=== PATIENT | female | born 1945 | race Caucasian/White ===

== ENCOUNTER 2022-10-04 08:56 | Inpatient (IN) ==
--- NOTE | 2022-10-04 10:22 | Emergency Department Note ---
HPI General Chief complaint: Fall Stated complaint: Hip fracture Time Seen by Provider: 10/04/22 10:08 Source: EMS Mode of arrival: EMS History of Present Illness HPI Narrative: Narrative: This patient with a history of dementia who resides at [facility] presents by EMS with a complaint of unwitnessed fall. Patient was found by staff on the floor. She reported that she had lost her balance and fallen. Initial reports that the patient did not hit her head, but the patient is not able to recall at this time whether or not she hit her head. Fall was unwitnessed. Patient is not on any blood thinners. She is complaining of right hip pain and low back pain. Obvious shortening and rotation of the right leg per EMS. Related Data Home Medications Medication Instructions Recorded Confirmed fluoxetine 20 mg tablet 20 mg PO QAM 09/04/21 10/04/22 latanoprost 0.005 % eye drops 1 drp ophthalmic (eye) HS 10/02/21 10/04/22 amlodipine 2.5 mg tablet 2.5 mg PO QAM 12/05/21 10/04/22 atorvastatin 40 mg tablet (Lipitor) 40 mg PO QPM 12/05/21 10/04/22 memantine 10 mg tablet (Namenda) 10 mg PO BID 12/05/21 10/04/22 ibuprofen 200 mg capsule 600 mg PO Q8H PRN Pain 02/07/22 10/04/22 naproxen 500 mg tablet 500 mg PO Q12H PRN pain 02/07/22 10/04/22 nystatin 100,000 unit/gram topical 10,000 unit topical BID 02/07/22 10/04/22 powder (Nyamyc) acetaminophen 325 mg tablet 650 mg PO Q4H PRN Pain 09/06/22 10/04/22 (Tylenol) Previous Rx's Medication Instructions Recorded donepezil 5 mg tablet 5 mg PO QHS #90 tabs 05/29/22 levothyroxine 137 mcg tablet 137 mcg PO QDAY #90 tabs 05/30/22 quetiapine 25 mg tablet 25 mg PO HS #90 tabs 07/16/22 Allergies Allergy/AdvReac Type Severity Reaction Status Date / Time penicillin G Allergy Unknown Unknown Verified 10/04/22 09:01 Review of Systems ROS ROS Narrative: Narrative: PFSH Narrative Patient History Narrative: Narrative: Medical/Surgical/Family History All Active Problems (Updated 10/04/22 @ 14:50 by Kelly Raymundo PA-C) Closed fracture of right hip (Acute) Intertrochanteric fracture of right femur (Acute) Alzheimer disease (Chronic) Abdominal pain (Chronic) Diarrhea (Chronic) Osteoarthritis (Chronic) Memory loss (Chronic) Glaucoma (Chronic) Anxiety (Chronic) Overweight (Chronic) History of cataract (Chronic) Belly pain (Chronic) Cough (Chronic) Throat clearing (Chronic) Acquired hypothyroidism (Chronic) Globus sensation (Chronic) Leukocytosis (Chronic) WILBERT (obstructive sleep apnea) (Chronic) Essential hypertension (Chronic) Hyperthyroidism (Chronic) Tinnitus of both ears (Chronic) Fatigue (Chronic) Right anterior knee pain (Chronic) Dementia (Chronic) Depression (Chronic) Iron deficiency anemia (Chronic) Normocytic anemia (Chronic) Mild aortic valve stenosis (Chronic) Irritation of eye (Chronic) Prediabetes (Chronic) High cholesterol (Chronic) Atypical chest pain (Chronic) Elevated blood-pressure reading, without diagnosis of hypertension (Chronic) Sleep disorder breathing (Chronic) Left anterior knee pain (Chronic) Aortic valve stenosis (Chronic) Neck pain (Chronic) Loss of balance (Chronic) Traumatic injury of head (Chronic) SOB (shortness of breath) (Chronic) Newly recognized murmur (Chronic) Elevated fasting glucose (Chronic) Left shoulder pain (Chronic) Candidiasis of vulva and vagina (Chronic) Dysuria (Chronic) Hypothyroidism (Chronic) Borderline hypothyroidism (Chronic) Impaired fasting glucose (Chronic) Obstruction of both eustachian tubes (Chronic) Pressure sensation in left ear (Chronic) Skin rash (Chronic) Dyslipidemia (Chronic) Knee problem (Chronic) COVID-19 (Chronic) Bilateral lower extremity edema (Chronic) Medicare annual wellness visit, initial (Acute) CLL (chronic lymphocytic leukemia) (Chronic) Monoclonal gammopathy (Chronic) Pleural effusion (Acute) Medical History Abdominal pain Right upper-Sided Acquired hypothyroidism Alzheimer disease Anxiety Aortic valve stenosis Atypical chest pain Belly pain Right Bilateral lower extremity edema Borderline hypothyroidism Candidiasis of vulva and vagina Cholecystitis CLL (chronic lymphocytic leukemia) Cough Dementia Depression Diarrhea Dyslipidemia Dysuria Elevated blood-pressure reading, without diagnosis of hypertension Elevated fasting glucose Essential hypertension Fatigue Glaucoma Globus sensation High cholesterol History of cataract Hyperthyroidism Hypothyroidism Impaired fasting glucose Iron deficiency anemia Irritation of eye Right Knee problem Left anterior knee pain Left shoulder pain Leukocytosis Loss of balance Medicare annual wellness visit, initial Memory loss Mild aortic valve stenosis Monoclonal gammopathy Neck pain Newly recognized murmur Normocytic anemia Obstruction of both eustachian tubes WILBERT (obstructive sleep apnea) Notable history, remote CPAP use, none recently (02/2022) Osteoarthritis Overweight Pleural effusion Prediabetes Pressure sensation in left ear Right anterior knee pain Skin rash Sleep disorder breathing SOB (shortness of breath) Throat clearing Tinnitus of both ears Traumatic injury of head Surgical History History of cataract surgery History of laparoscopic cholecystectomy (10/02/21) Family History Family/Other Cancer Son , 2 sons Diabetes Daughter Non Hodgkin's lymphoma Sister Non Hodgkin's lymphoma 1/2 sister Father High blood pressure Social History Smoking Status: Former smoker Alcohol Intake Frequency: does not drink Substance Use: does not use Exam Narrative Narrative: Narrative: Vital signs noted General: mild distress. Skin: Warm. Dry. No rash. Normal color. Eyes: PERRL. EOMI. Mouth: Membranes moist. Normal inspection. Neck: Good ROM. No meningeal signs. Supple. Cardiovascular: Regular rate and rhythm. No murmur. Respiratory: No respiratory distress. Breath sounds equal. No wheezing/rales/rhonchi. Gastrointestinal: Abdomen soft. No tenderness. No distention. Normal bowel sounds. No rebound tenderness or guarding. Back: Focal tenderness palpation of the lumbar spine in the L3 area. No obvious deformity or step-off. No crepitus. Extremities: Exquisite tenderness palpation of the right hip. Obvious shortening and rotation of the right lower extremity. Dorsalis pedis pulses intact bilaterally. Neurological: No focal neurological deficits observed. CN 2-12 intact. Alert. Oriented to person which is her baseline. Patient does not have clear recollection of the event. Course Course Course Narrative: The following orders are placed and reviewed by myself: Patient medicated with Dilaudid for pain, Zofran for nausea CBC and CHEM panel reviewed Fall is unwitnessed, patient believes she just lost her balance but is not quite sure. Syncope is considered. EKG is obtained EKG reviewed by myself to show normal sinus rhythm rate 95. QRS complexes are n arrow and at regular interval. No ST elevation or depression. 1 view chest x-ray consistent with pulmonary congestion. CT the brain, cervical spine, lumbar spine and pelvis without contrast report by radiology to be concerning for a right intertrochanteric fracture of the right hip. CT the brain is concerning for possible hemorrhage, with recommendation for MRI. MRI of the brain without contrast is without acute changes. Patient discussed with on-call orthopedic surgeon Dr. Francois regarding hip fracture. Anticipation is the patient will go to surgery today. Patient also discussed with and accepted by hospitalist service. Vital Signs Vital signs: Vital Signs Temperature 97.8 F 10/04/22 08:57 Pulse Rate 89 10/04/22 08:57 Respiratory Rate 16 10/04/22 08:57 Blood Pressure 122/73 10/04/22 08:57 Pulse Oximetry (%) 95 10/04/22 08:57 Oxygen Delivery Method Room Air 10/04/22 08:57 Temperature 97.8 F 10/04/22 08:57 Pulse Rate 84 10/04/22 14:31 Respiratory Rate 33 H 10/04/22 10:31 Blood Pressure 128/73 10/04/22 14:31 Pulse Oximetry (%) 96 10/04/22 14:31 Oxygen Delivery Method Nasal Cannula 10/04/22 14:31 Oxygen Flow Rate (L/min) 2 10/04/22 14:31 [facility] MDM Narrative Medical decision making narrative: Narrative: Lab Data 10/04/22 10:29 10/04/22 09:15 Labs: Lab Results 10/04/22 10/04/22 10/04/22 Range/Units 09:15 09:15 10:29 WBC 20.5 H (4.5-11.0) K/mcL RBC 4.56 (3.59-5.38) M/mcL Hgb 12.4 (11.2-15.7) g/dL Hct 39.0 (34.1-44.9) % MCV 85.5 (80.0-100.0) fL MCH 27.2 (26.0-34.0) pg MCHC 31.8 (31.0-36.0) g/dL RDW 18.3 H (11.5-14.5) % Plt Count 345 (140-440) K/mcL MPV 11.0 (8.8-12.5) fL Immature Gran % (Auto) 0.8 H (0.0-0.5) % Neut % (Auto) 37.9 L (38.0-78.0) % Lymph % (Auto) 53.1 H (15.5-49.0) % Potter % (Auto) 7.5 (1.0-12.0) % Eos % (Auto) 0.4 (0.0-7.0) % Baso % (Auto) 0.3 (0.0-2.0) % Lymph # (Auto) 10.90 H (1.50-4.80) K/mcL Potter # (Auto) 1.54 H (0.10-0.90) K/mcL Eos # (Auto) 0.08 (0.00-0.70) K/mcL Baso # (Auto) 0.06 (0.00-0.30) K/mcL Immature Gran # 0.17 H (0.00-0.05) K/mcl Absolute Neutrophils 7.77 (1.80-8.00) K/mcL PT 14.1 (11.9-14.5) sec INR 1.1 (0.9-1.1) Sodium 138 (133-145) mmol/L Potassium 3.8 (3.3-5.1) mmol/L Chloride 104 (96-108) mmol/L Carbon Dioxide 22 (22-30) mmol/L Anion Gap 12.0 (8.0-16.0) BUN 10 (8-23) mg/dL Creatinine 1.2 H (0.6-1.1) mg/dL GFR Calculation 43 Glucose 109 H (70-105) mg/dL Calcium 8.5 L (8.6-10.4) mg/dL Total Bilirubin 0.4 (0.1-1.0) mg/dL AST 19 (<32) U/L ALT 7 (<40) U/L Alkaline Phosphatase 156 H (39-117) U/L Total Protein 6.9 (5.9-8.4) gm/dL Albumin 3.0 L (3.2-5.2) gm/dL Globulin 3.9 H (2.2-3.7) gm/dL Albumin/Globulin Ratio 0.8 L (1.0-2.3) Discharge Plan Patient/Caregiver Discharge Instructions Pt seen by CUST[employer]ER [employer] ASSOCIATE/PA only: Yes Clinical Impression: Closed fracture of right hip Patient Disposition: Xfer As Outpt/Obs ([facility]) Follow up with: Dale Francois MD [Physician] - Raj Good MD [Primary Care Provider] - Prescriptions: No Action levothyroxine 137 mcg tablet 137 mcg PO QDAY Qty: 90 3RF quetiapine 25 mg tablet 25 mg PO HS Qty: 90 1RF fluoxetine 20 mg tablet 20 mg PO QAM amlodipine 2.5 mg tablet 2.5 mg PO QAM atorvastatin [Lipitor] 40 mg tablet 40 mg PO QPM memantine [Namenda] 10 mg tablet 10 mg PO BID ibuprofen 200 mg capsule 600 mg PO Q8H PRN (Reason: Pain) nystatin [Nyamyc] 100,000 unit/gram powder 10,000 unit topical BID naproxen 500 mg tablet 500 mg PO Q12H PRN (Reason: pain) donepezil 5 mg tablet 5 mg PO QHS Qty: 90 2RF acetaminophen [Tylenol] 325 mg tablet 650 mg PO Q4H PRN (Reason: Pain) latanoprost 0.005 % drops 1 drp OPHTHALMIC (EYE) HS
[2022-10-04] MEDS ORDERED: ONDANSETRON 4 MG/2 ML VIAL ONE ×2 (10:33→15:25)
[2022-10-04] MEDS: HYDROmorphone 0.5 MG/0.5 ML SYRINGE IV PRN ×2 (10:38→14:09)
[2022-10-04] MEDS ORDERED: ONDANSETRON 4 MG/2 ML VIAL IV ONE (10:39)
--- NOTE | 2022-10-04 11:00 | Cat Scan Report ---
CLINICAL INFORMATION: Trauma COMPARISON: None. TECHNIQUE: 2.5 mm helical slices were obtained in the skull base to vertex. Following reconstruction, axial reformatted images were reviewed at bone and parenchymal windows. The exam was performed using radiation dose optimization techniques including, but not limited to, automated exposure control, adjustment of the mA and/or kV according to patient size and use of iterative reconstruction technique. FINDINGS: The ventricles, sulci, fissures, and cisterns are symmetrically enlarged compatible with mild age-related atrophy. No extra-axial fluid collections are identified. Mild patchy chronic ischemic changes, in the deep cerebral white matter, are expected for age. There is a 20 x 8 mm fusiform shaped hyperattenuating region in the soto radiata fibers in the deep white matter adjacent to the right lateral ventricle. This could represent a focus of hemorrhage.. Bone windows show no osseous abnormality. IMPRESSION: Mild atrophy and chronic ischemic changes in the deep cerebral white matter-expected for age. 20 x 8 mm fusiform high attenuation region in the deep right frontal white matter possible vague region of hemorrhage. Suggest brain MRI Interpreted and Authenticated by: Han Cao 10/04/22
[2022-10-04 11:13] LABS: Basophils # (Auto) 0.06 K/mcL (0.00-0.30); Basophils % (Auto) 0.3 % (0.0-2.0); Eosinophils # (Auto) 0.08 K/mcL (0.00-0.70); Eosinophils % (Auto) 0.4 % (0.0-7.0); Hemoglobin 12.4 g/dL (11.2-15.7); Lymphocytes % (Auto) 53.1 % (15.5-49.0); Mean Cell Volume 85.5 fL (80.0-100.0); Mean Corpuscular HGB Conc 31.8 g/dL (31.0-36.0); Monocytes # (Auto) 1.54 K/mcL (0.10-0.90); Monocytes % (Auto) 7.5 % (1.0-12.0); Neutrophils % (Auto) 37.9 % (38.0-78.0); Platelet Count 345 K/mcL (140-440); RBC 4.56 M/mcL (3.59-5.38); Red Cell Distribution Width 18.3 % (11.5-14.5); WBC 20.5 K/mcL (4.5-11.0)
[2022-10-04 11:33] LABS: INR 1.1 (0.9-1.1); Prothrombin Time 14.1 sec (11.9-14.5)
[2022-10-04 11:35] LABS: ALT/SGPT 7 U/L (<40); AST/SGOT 19 U/L (<32); Albumin/Globulin Ratio 0.8 (1.0-2.3); Alkaline Phosphatase 156 U/L (39-117); Bilirubin,Total 0.4 mg/dL (0.1-1.0); Blood Urea Nitrogen 10 mg/dL (8-23); Calcium 8.5 mg/dL (8.6-10.4); Carbon Dioxide 22 mmol/L (22-30); Chloride 104 mmol/L (96-108); Globulin 3.9 gm/dL (2.2-3.7); Glomerular Filtration Rate 43; Glucose 109 mg/dL (70-105)
--- NOTE | 2022-10-04 11:35 | XRay Report ---
CLINICAL INFORMATION: Shortness of breath COMPARISON: 09/17/2022 TECHNIQUE: Portable FINDINGS: The heart is mildly enlarged. Mediastinum is unremarkable. Pulmonary vessels are mildly distended with mild peribronchial vascular edema. Small recurrent left pleural effusion appreciated. No evidence of left pneumothorax. IMPRESSION: Moderate CHF. Small recurrent left pleural effusion Interpreted and Authenticated by: Han Cao 10/04/22
--- NOTE | 2022-10-04 11:41 | Cat Scan Report ---
CLINICAL INFORMATION: Right hip pain COMPARISON: None. TECHNIQUE: 0.625 mm helical slices were obtained from the mid L4 through the subtrochanteric regions. Following reconstruction, 2.5 mm sagittal, coronal and axial reformations were processed. The exam was reviewed in bone and soft tissue windows. The exam was performed using radiation dose optimization techniques including, but not limited to, automated exposure control, adjustment of mA and/or kV according to patient size and use of iterative reconstruction technique. FINDINGS: A moderately comminuted acute intertrochanteric fracture of the right hip is appreciated. There is moderate coxa vara angulation. The femoral diaphysis is displaced 5 mm posteriorly with respect to the femoral neck. Both SI and hip joints show mild degeneration. Soft tissues show urinary bladder is normal. Slightly retroflexed uterus is normal postmenopausal size 6 x 2.7 cm. The region of both ovaries are normal. Visualized small large bowel are unremarkable. There is no free air, free fluid or adenopathy. Inferior pericecal appendix is normal. Muscle and fascial planes are unremarkable. IMPRESSION: Moderately comminuted acute intertrochanteric fracture right hip with coxa vera angulation and mild displacement. Interpreted and Authenticated by: Han Cao 10/04/22
--- NOTE | 2022-10-04 11:54 | Cat Scan Report ---
CLINICAL INFORMATION: Trauma COMPARISON: None. TECHNIQUE: 0.625 mm helical slices were obtained from the mid T12 through mid S2 vertebral bodies. Following reconstruction, 2.5 mm coronal, sagittal, and axial reformations (angle to the disc spaces) were processed. Exam was reviewed at bone and soft tissue windows.The exam was performed using radiation dose optimization techniques including, but not limited to, automated exposure control, adjustment of the mA and/or kV according to patient size and use of iterative reconstruction technique. FINDINGS: The lumbar spine is normal in curvature and alignment. There are no fractures or other osseous abnormalities. The region of the conus medullaris and cauda equina roots are normal. Mild pancreatic atrophy noted. There are no other soft tissue abnormalities. The T11-T12, T12-L1 and L1-2 disc levels are normal. At L2-3 mild broad disc spur complex and facet arthropathy result in moderate central canal and bilateral lateral recess narrowing. There may be impingement of the descending L3 nerve roots. At L3-4, moderate broad disc protrusion facet arthropathy result in moderate central canal and mild bilateral lateral recess and IV foraminal narrowing. At L4-5, moderate broad disc protrusion, grade 1 spondylolisthesis, facet arthropathy and ligamentum flavum hypertrophy result in severe central canal, moderate bilateral lateral recess and mild bilateral IV foraminal narrowing. There is impingement of the descending L5 nerve roots in the lateral recesses. At L5-S1, moderate broad disc spur complex and facet arthropathy result in mild bilateral IV foraminal narrowing and mild central canal narrowing. IMPRESSION: 1. Fracture or posttraumatic change. 2. Multilevel degeneration-most severe at L4-5 featuring severe central canal and moderate bilateral lateral recess narrowing with impingement of the descending L5 nerve roots 3. Pancreatic atrophy Interpreted and Authenticated by: Han Cao 10/04/22
--- NOTE | 2022-10-04 11:59 | Cat Scan Report ---
CLINICAL INFORMATION: Trauma COMPARISON: None. TECHNIQUE: 0.625 mm helical slices were obtained from the skull base through the superior T2 end plate. Following reconstruction, 2.5 mm sagittal, coronal and axial reformations , with and without disc space angling, were processed. The exam was reviewed at bone and soft tissue windows. The exam was performed using radiation dose optimization techniques including, but not limited to, automated exposure control, adjustment of the mA and/or kV according to patient size and use of iterative reconstruction technique. FINDINGS: Sagittal and coronal reformatted images show the cervical spine is anatomically aligned. There is no fracture. Fusion of the C3-4 facet appreciated-no other osseous abnormality. The cervical cord is normal in contour and caliber without focal lesion. The soft tissues are normal. At C2-3, a small right-sided disc spur complex mildly impinges the anterior fixation thecal sac. At C3-4, mild broad far left calcified disc spur complex and facet hypertrophy results in mild left lateral recess and mild central canal narrowing At C4-5, mild broad disc protrusion minimally impinges the thecal sac At C5-6, mild broad disc protrusion with right-sided asymmetry facet arthropathy result in mild central canal and mild right IV foraminal narrowing At C6-7, mild broad disc protrusion results in mild thecal sac impingement C7-T1 mild broad disc protrusion appreciated. IMPRESSION: 1. No fracture or posttraumatic change 2. Mild multilevel degeneration 3. Severe bilateral TMJ degeneration Interpreted and Authenticated by: Han Cao 10/04/22
--- NOTE | 2022-10-04 12:15 | Magnetic Resonance Report ---
CLINICAL INFORMATION: History of dementia and trauma. Possible hemorrhage in the right frontal white matter on CT COMPARISON: Head CT 09/26/2022 TECHNIQUE:Sagittal T1 FLAIR, axial T1 FLAIR, T2 FLAIR propeller, T2 propeller, gradient, diffusion, ADC and coronal T2 weighted images were acquired. FINDINGS: The ventricles, sulci, fissures and cisterns are symmetrically enlarged relative mild age-related atrophy extra-axial fluid collections or mass are appreciated. Chronic senescent ischemic changes seen in the deep cerebral white matter expected for age. There is no evidence of hemorrhage in the deep right frontal white matter which was suspected on CT. This should be considered artifact. The signal void in intracerebral arteries, extra-axial cranial nerves, pituitary, orbits and paranasal sinuses are all normal. IMPRESSION: Mild atrophy and chronic senescent ischemic changes in the cerebral white matter expected for age. No evidence of hemorrhage in the deep right frontal white matter. This should be considered a CT artifact Interpreted and Authenticated by: Han Cao 10/04/22
--- NOTE | 2022-10-04 14:22 | XRay Report ---
CLINICAL INFORMATION: Trauma COMPARISON: None. FINDINGS: A moderately comminuted acute intertrochanteric fracture of the right hip is appreciated. There is moderate coxa vara angulation and mild displacement. Both SI and hip joints show mild degeneration. Soft tissue swelling over the fracture site appreciated IMPRESSION: Moderately comminuted acute intertrochanteric fracture right hip with coxa vara angulation and mild displacement Interpreted and Authenticated by: Han Cao 10/04/22
--- NOTE | 2022-10-04 14:37 | Internal Med History&Physical ---
HPI History of Present Illness Patient information: Note initiated : 10/04/22 at 2:28 pm Service Date, if different from initiated Date: [] Patient: Siria Carreno a 76 y/o F admitted on for Open Reduction & Internal Fixation of Right Hip . Chief Complaint: [fall] Chief complaint: fall History of present illness: Ms. Carreno is a 76 year old F past medical history of dementia, hypertensions, dyslipidemia, depressions, hypothyroidism, memory care facility resident, presenting with accidental fall. The fall was and weakness. It was reported that she was found on the ground in the cafeteria of the [facility] care facility. Patient recalls that she fell but she does not remember any details about the accident at all. Right now she denies of any of the hip pain. She is comfortable at the moment. Imaging done in our ED showing right intertrochanteric hip fractures. Orthopedic surgeon Dr. Francois notified it and would like to take the patient to the OR later today. Constitutional Constitutional: Absent chills, excessive sweating, fatigue, fever(s) or weakness EENT Eyes: Absent blurry vision, change in vision, loss of vision or other visual disturbances Ears: Absent decreased hearing or tinnitus Nose, mouth and throat: Absent abnormal hearing, dry mouth, headache(s), nasal congestion or sore throat Cardiovascular Cardiovascular: Absent chest pain, chest pain at rest, edema, irregular heart rhythm or palpatations Respiratory Respiratory: Absent cough, dyspnea or wheezing Gastrointestinal Gastrointestinal: Absent abdominal pain, constipation, diarrhea, nausea or vomiting Musculoskeletal Musculoskeletal: Absent back pain, deformity, limited range of motion, muscle cramps, muscle weakness or numbness Integumentary Integumentary: Absent lesions, rash or wounds Neurological Neurological: Absent focal weakness, headache(s) or numbness Psychiatric Psychiatric: Absent anxiety, depression or hallucinations PFSH PFSH All Active Problems (Updated 10/04/22 @ 14:37 by Lanre Finch MD) Intertrochanteric fracture of right femur (Acute) Alzheimer disease (Chronic) Abdominal pain (Chronic) Diarrhea (Chronic) Osteoarthritis (Chronic) Memory loss (Chronic) Glaucoma (Chronic) Anxiety (Chronic) Overweight (Chronic) History of cataract (Chronic) Belly pain (Chronic) Cough (Chronic) Throat clearing (Chronic) Acquired hypothyroidism (Chronic) Globus sensation (Chronic) Leukocytosis (Chronic) WILBERT (obstructive sleep apnea) (Chronic) Essential hypertension (Chronic) Hyperthyroidism (Chronic) Tinnitus of both ears (Chronic) Fatigue (Chronic) Right anterior knee pain (Chronic) Dementia (Chronic) Depression (Chronic) Iron deficiency anemia (Chronic) Normocytic anemia (Chronic) Mild aortic valve stenosis (Chronic) Irritation of eye (Chronic) Prediabetes (Chronic) High cholesterol (Chronic) Atypical chest pain (Chronic) Elevated blood-pressure reading, without diagnosis of hypertension (Chronic) Sleep disorder breathing (Chronic) Left anterior knee pain (Chronic) Aortic valve stenosis (Chronic) Neck pain (Chronic) Loss of balance (Chronic) Traumatic injury of head (Chronic) SOB (shortness of breath) (Chronic) Newly recognized murmur (Chronic) Elevated fasting glucose (Chronic) Left shoulder pain (Chronic) Candidiasis of vulva and vagina (Chronic) Dysuria (Chronic) Hypothyroidism (Chronic) Borderline hypothyroidism (Chronic) Impaired fasting glucose (Chronic) Obstruction of both eustachian tubes (Chronic) Pressure sensation in left ear (Chronic) Skin rash (Chronic) Dyslipidemia (Chronic) Knee problem (Chronic) COVID-19 (Chronic) Bilateral lower extremity edema (Chronic) Medicare annual wellness visit, initial (Acute) CLL (chronic lymphocytic leukemia) (Chronic) Monoclonal gammopathy (Chronic) Pleural effusion (Acute) Medical History Abdominal pain Right upper-Sided Acquired hypothyroidism Alzheimer disease Anxiety Aortic valve stenosis Atypical chest pain Belly pain Right Bilateral lower extremity edema Borderline hypothyroidism Candidiasis of vulva and vagina Cholecystitis CLL (chronic lymphocytic leukemia) Cough Dementia Depression Diarrhea Dyslipidemia Dysuria Elevated blood-pressure reading, without diagnosis of hypertension Elevated fasting glucose Essential hypertension Fatigue Glaucoma Globus sensation High cholesterol History of cataract Hyperthyroidism Hypothyroidism Impaired fasting glucose Iron deficiency anemia Irritation of eye Right Knee problem Left anterior knee pain Left shoulder pain Leukocytosis Loss of balance Medicare annual wellness visit, initial Memory loss Mild aortic valve stenosis Monoclonal gammopathy Neck pain Newly recognized murmur Normocytic anemia Obstruction of both eustachian tubes WILBERT (obstructive sleep apnea) Notable history, remote CPAP use, none recently (02/2022) Osteoarthritis Overweight Pleural effusion Prediabetes Pressure sensation in left ear Right anterior knee pain Skin rash Sleep disorder breathing SOB (shortness of breath) Throat clearing Tinnitus of both ears Traumatic injury of head Surgical History History of cataract surgery History of laparoscopic cholecystectomy (10/02/21) Family History Family/Other Cancer Son , 2 sons Diabetes Daughter Non Hodgkin's lymphoma Sister Non Hodgkin's lymphoma 1/2 sister Father High blood pressure Social History marital status: single occupational status: unemployed smoking status: Former smoker smoking status stop date: 06/09/05 alcohol intake frequency: does not drink substance use type: does not use MEDS/ALLERGIES Home Medications and Allergies Home Medications Medication Instructions Recorded Confirmed Type fluoxetine 20 mg tablet 20 mg PO QAM 09/04/21 10/04/22 History latanoprost 0.005 % eye drops 1 drp ophthalmic (eye) HS 10/02/21 10/04/22 History amlodipine 2.5 mg tablet 2.5 mg PO QAM 12/05/21 10/04/22 History atorvastatin 40 mg tablet (Lipitor) 40 mg PO QPM 12/05/21 10/04/22 History memantine 10 mg tablet (Namenda) 10 mg PO BID 12/05/21 10/04/22 History ibuprofen 200 mg capsule 600 mg PO Q8H PRN Pain 02/07/22 10/04/22 History naproxen 500 mg tablet 500 mg PO Q12H PRN pain 02/07/22 10/04/22 History nystatin 100,000 unit/gram topical 10,000 unit topical BID 02/07/22 10/04/22 History powder (Nyamyc) donepezil 5 mg tablet 5 mg PO QHS #90 tabs 05/29/22 10/04/22 Rx levothyroxine 137 mcg tablet 137 mcg PO QDAY #90 tabs 05/30/22 10/04/22 Rx quetiapine 25 mg tablet 25 mg PO HS #90 tabs 07/16/22 10/04/22 Rx acetaminophen 325 mg tablet 650 mg PO Q4H PRN Pain 09/06/22 10/04/22 History (Tylenol) Allergies Allergy/AdvReac Type Severity Reaction Status Date / Time penicillin G Allergy Unknown Unknown Verified 10/04/22 09:01 EXAM Constitutional Vitals: Temp Pulse Resp BP Pulse Ox O2 Del Method 36.6 C 94 H 33 H 119/66 87 L Room Air 10/04/22 08:57 10/04/22 13:00 10/04/22 10:31 10/04/22 13:00 10/04/22 13:00 10/04/22 08:57 General appearance: cooperative and no acute distress Head Head exam: Present atraumatic and normocephalic Eye Eye exam: Present EOMI and PERRL ENT ENT exam: Present mucous membranes moist, normal exam and normal external ear exam Additional comments: Nasal cannula in place Neck Neck exam: Present normal inspection; Absent lymphadenopathy, tenderness or th yromegaly Respiratory Respiratory exam: Absent accessory muscle use, respiratory distress or wheezes Cardiovascular Cardiovascular exam: Present normal rate and rhythm; Absent JVD GI/Abdominal GI/Abdominal exam: Present normal bowel sounds and soft; Absent organomegaly or tenderness Extremities Exam Extremities exam: Present normal capillary refill, normal inspection and tenderness; Absent full ROM Additional comments: Right hip active and passive ROMs limited by pain Neurological Exam Neurological exam: Present alert and CN II-XII intact; Absent motor sensory deficit or oriented X3 Additional comments: Oriented X2 to person and place only Psychiatric Psychiatric exam: Present normal affect and normal mood; Absent anxious or depressed Skin Skin exam: Present dry and intact DATA Data Completed and Pending Labs: Labs from last 24 hours 10/04/22 10/04/22 10/04/22 10:29 09:15 09:15 WBC 20.5 H RBC 4.56 Hgb 12.4 Hct 39.0 MCV 85.5 MCH 27.2 MCHC 31.8 RDW 18.3 H Plt Count 345 MPV 11.0 Immature Gran % (Auto) 0.8 H Neut % (Auto) 37.9 L Lymph % (Auto) 53.1 H [place] % (Auto) 7.5 Eos % (Auto) 0.4 Baso % (Auto) 0.3 Lymph # (Auto) 10.90 H [place] # (Auto) 1.54 H Eos # (Auto) 0.08 Baso # (Auto) 0.06 Immature Gran # 0.17 H Absolute Neutrophils 7.77 PT 14.1 INR 1.1 Sodium 138 Potassium 3.8 Chloride 104 Carbon Dioxide 22 Anion Gap 12.0 BUN 10 Creatinine 1.2 H GFR Calculation 43 Glucose 109 H Calcium 8.5 L Total Bilirubin 0.4 AST 19 ALT 7 Alkaline Phosphatase 156 H Total Protein 6.9 Albumin 3.0 L Globulin 3.9 H Albumin/Globulin Ratio 0.8 L A/P Assessment and plan (1) Intertrochanteric fracture of right femur: Status: Acute (2) Alzheimer disease: Status: Chronic (3) Hyperthyroidism: Status: Chronic (4) Essential hypertension: Status: Chronic (5) Dementia: Status: Chronic (6) Depression: Status: Chronic (7) Dyslipidemia: Status: Chronic Narrative A/P Narrative: Assessment and Plans: 1. Right intertrochanteric femur fracture: Inpatient MedSurg Orthopedic surgeon Dr. Francois notified it who plan to take the patient to the OR today Bedrest N.p.o. with normal saline at 100 cc/h in preparation of the surgery Tylenol Naproxen Oxycodone Morphine Physical therapy evaluation and treatment Occupational Therapy evaluation and treatment 2. History of Alzheimer dementia: Donepezil Memantine 3. Depression Quetiapine 4. Essential hypertension: Norvasc Hold Lasix for now while giving IV fluid 5. Dyslipidemia: Continue Lipitor 6. Hypothyroidism: Continue thyroid replacement therapy GI prophylaxis: Not currently indicated DVT prophylaxis: SCDs CODE STATUS: Full code Prognosis: Guarded Disposition: Inpatient MedSurg Time Spent With Patient Time: Total time spent is greater than 50% in coordination of care (as documented) at patient's floor/unit and/or counseling patient: Initial: Total time with patient: 55 - 74 minutes
[2022-10-04] MEDS ORDERED: ceFAZolin 2 GM in DEXTROSE 5% IN WATER 50 ML IV SCH ×2 (15:00→16:45)
[2022-10-04] MEDS ORDERED: ACETAMINOPHEN 325 MG TABLET PO PRN ×2 (15:22→17:35)
[2022-10-04] MEDS ORDERED: NAPROXEN 250 MG TABLET PO PRN (15:23)
[2022-10-04] MEDS ORDERED: LIDOCAINE HCL/PF 100 MG/5 ML SYRINGE IV ONE (15:25)
[2022-10-04] MEDS ORDERED: MIDAZOLAM 2 MG/2 ML VIAL ONE (15:25)
[2022-10-04] MEDS ORDERED: HYDROmorphone 1 MG/ML SYRINGE ONE (15:25)
[2022-10-04] MEDS ORDERED: PROPOFOL 200 MG/20 ML VIAL IV ONE (15:25)
[2022-10-04] MEDS ORDERED: DEXAMETHASONE 10 MG/ML VIAL ONE (15:25)
[2022-10-04] MEDS ORDERED: TRANEXAMIC ACID 1,000 MG/10 ML VIAL ONE (15:25)
[2022-10-04] MEDS ORDERED: KETAMINE 50 MG/ML Syringe (ANEST) IV ONE (15:25)
[2022-10-04] MEDS ORDERED: MAGNESIUM SULFATE 2 GM/50 ML BAG IV ONE (15:25)
[2022-10-04] MEDS ORDERED: BENZOCAINE/MENTHOL 1 LOZENGE PO PRN (16:17)
[2022-10-04] MEDS ORDERED: BISACODYL 10 MG SUPP.RECT PR PRN (16:17)
[2022-10-04] MEDS ORDERED: FLEETS ADULT ENEMA PR PRN (16:17)
[2022-10-04] MEDS ORDERED: MAGNESIUM HYDROXIDE 30 ML ORAL.SUSP PO PRN (16:17)
[2022-10-04] MEDS ORDERED: POLYETHYLENE GLYCOL 3350 17 GM PACKET PO PRN (16:17)
--- NOTE | 2022-10-04 16:17 | Brief Operative Note ---
Brief Operative Note Date of procedure: 10/04/22 Pre-op diagnosis: Right closed intertrochanteric hip fracture Post-op diagnosis: same Procedure: Open treatment internal fixation of right intertrochanteric fracture with intramedullary fixation Grafts/Implants: Yes (Page short gamma nail, 125, 85 mm lag screw) Anesthesia: spinal Findings: severe osteoporosis, comminuted fracture Complications: none Surgeon: Dale Francois Alarm Technician: Saulo Núñez Estimated blood loss (cc): 100 Specimens Removed/Pathology: none sent Condition: stable Disposition: PACU
[2022-10-04] MEDS ORDERED: morphine 4 MG/ML VIAL IV PRN ×2 (16:35→17:35)
[2022-10-04] MEDS ORDERED: fentaNYL 100 MCG/2 ML VIAL IV PRN (16:36)
[2022-10-04] MEDS ORDERED: MEPERIDINE 25 MG/ML VIAL IV PRN (16:36)
[2022-10-04] MEDS ORDERED: METHOCARBAMOL 1,000 MG/10 ML VIAL IV PRN (16:36)
[2022-10-04] MEDS ORDERED: HYDROmorphone 0.5 MG/0.5 ML SYRINGE IV PRN (16:36)
[2022-10-04] MEDS ORDERED: ONDANSETRON 4 MG/2 ML VIAL IV PRN ×2 (16:36→17:35)
[2022-10-04] MEDS ORDERED: IPRATROPIUM/ALBUTEROL 3 ML AMPUL.NEB NEB PRN ×2 (16:36→17:35)
[2022-10-04] MEDS ORDERED: PROMETHAZINE 25 MG/ML VIAL IV PRN (16:36)
[2022-10-04] MEDS ORDERED: METHOCARBAMOL 1,000 MG/10 ML VIAL ONE (17:05)
[2022-10-04] MEDS ORDERED: fentaNYL 100 MCG/2 ML VIAL IV ONE (17:06)
[2022-10-04] MEDS ORDERED: oxyCODONE IR 5 MG TABLET PO PRN (17:35)
[2022-10-04] MEDS ORDERED: traZODone HCL 50 MG TABLET PO PRN (17:35)
--- NOTE | 2022-10-04 17:50 | History and Physical Report ---
DATE OF ADMISSION: 10/04/2022 CHIEF COMPLAINT: Right hip pain. HISTORY OF PRESENT ILLNESS: This is a 76-year-old female with a history of dementia that lives at memory care facility that was found on the ground in the cafeteria. She reported significant hip pain and was unable to bare weight. She was brought to the ED, x-rays taken did show a right intertrochanteric hip fracture. The patient also has a history of hypertension, dyslipidemia, depression, and hypothyroidism. MEDICAL HISTORY: Include Alzheimer, anxiety, aortic valve stenosis, prediabetes, dyslipidemia, and hypertension. PAST SURGICAL HISTORY: Positive for history of cataract surgery and laparoscopic cholecystectomy. FAMILY HISTORY: Her two son's from diabetes. A daughter with non-Hodgkin's lymphoma. Sister with non-Hodgkin's lymphoma. Father has high blood pressure. SOCIAL HISTORY: The patient is single. She lives in a memory care facility. She is a former smoker. She does not drink. CURRENT MEDICATIONS: Include; 1. Fluoxetine 20 mg. 2. Latanoprost eye drops. 3. Amlodipine 2.5 mg. 4. Atorvastatin 40 mg. 5. Memantine 10 mg tablet. 6. Ibuprofen 200 mg. 7. Naproxen 500 mg. 8. Nystatin 1000 units/gm topical powder. 9. Donepezil 5 mg. 10. Levothyroxine 137 mcg. 11. ____ 25 mg tablet. 12. Acetaminophen 325 mg tablet. ALLERGIES: THE PATIENT DOES HAVE ALLERGIES TO PENICILLIN, REACTION IS UNKNOWN. REVIEW OF SYSTEMS: Ten-point review of system is positive for right hip pain and swelling. PHYSICAL EXAMINATION: GENERAL: The patient is not alert. She is confused. HEART: Regular. LUNGS: Clear to auscultation bilaterally. EXTREMITIES: She has palpable tibial pulses and good capillary refill to bilateral lower extremities. She is tender to palpation over the right hip. She is unable to move the right lower extremity due to pain, however, she is able to flex and extend her toes. She does have active and passive range of motion noted of the left lower extremity particularly the ankle, 5/5 plantar flexion and dorsiflexion. DIAGNOSTIC STUDIES: X-rays reviewed, 3-view of the hip do show displaced intertrochanteric fracture. IMPRESSION: Right-sided displaced intertrochanteric fracture. PLAN: The patient has elected to proceed with a right hip intertrochanteric fracture with IM nail to be performed by Dr. Francois. I advised the patient of the risks of surgery including bleeding; infection; injuring nerves, blood vessels or other structures of the area; and anesthetic risks. SHERRY:shakila Job ID: [id number] Doc ID: [id number] Saulo Núñez PA-C
[2022-10-04] MEDS: 0.9 % SODIUM CHLORIDE 1,000 ML IV SCH (17:53)
[2022-10-04] MEDS ORDERED: DOCUSATE SODIUM 100 MG CAPSULE PO SCH (21:00)
[2022-10-04] MEDS ORDERED: SENNOSIDES 1 TABLET PO SCH (21:00)
[2022-10-04] MEDS ORDERED: 0.9 % SODIUM CHLORIDE 10 ML SYRINGE IV SCH (22:00)
[2022-10-04] MEDS: MEMANTINE 10 MG TABLET PO SCH (22:28)
[2022-10-04] MEDS: DONEPEZIL 10 MG TABLET PO SCH (22:28)
[2022-10-04] MEDS: SENNOSIDES 1 TABLET PO SCH (22:29)
[2022-10-04] MEDS: ceFAZolin 1 GM VIAL IV SCH (22:29)
[2022-10-04] MEDS: DOCUSATE SODIUM 100 MG CAPSULE PO SCH (22:29)
[2022-10-04] MEDS: QUEtiapine 25 MG TABLET PO SCH (22:29)
[2022-10-04] MEDS: ATORVASTATIN 40 MG TABLET PO SCH (22:29)
[2022-10-04] MEDS: LATANOPROST OPHTH DROPS 2.5ML BOTTLE OU SCH (22:30)
[2022-10-04] MEDS: NYSTATIN POWDER BOTTLE 15GM TOPICAL SCH (22:30)
[2022-10-04] MEDS: 0.9 % SODIUM CHLORIDE 10 ML SYRINGE IV SCH (22:30)
--- NOTE | 2022-10-05 02:06 | XRay Report ---
CLINICAL INFORMATION: ORIF intertrochanteric fracture right hip COMPARISON: None. FINDINGS: Comminuted intertrochanteric fracture of the right hip has been reduced to anatomic alignment and transfixed by gamma nail. Total fluoroscopy time 0.7 minutes.. IMPRESSION: ORIF intertrochanteric fracture-anatomic alignment. Interpreted and Authenticated by: Han Cao 10/05/22
[2022-10-05 03:11] LABS: Appearance,Urine CLEAR (Clear); Bilirubin,Urine Negative (Negative); Color,Urine YELLOW; Culture Indicated,Urine No; Glucose,Urine (UA) Negative (Negative); Ketones,Urine Negative (Negative); Leukocyte Esterase,Urine Negative /uL (Negative); Mucus,Urine MOD /hpf; Nitrate,Urine Negative (Negative); Protein,Urine 30 mg/dL (Negative); Specific Gravity,Urine 1.028 (1.000-1.035); Urine Blood 0.03 mg/dL (Negative); Urine Hyaline Cast 13 /lph (0-2); Urine RBC 18 /hpf (0-3); Urine Squamous Epithelial Cell 0 /hpf (0-4); Urine WBC 1 /hpf (0-4); Urobilinogen,Urine Negative
[2022-10-05] MEDS: 0.9 % SODIUM CHLORIDE 1,000 ML IV SCH (03:53)
[2022-10-05] MEDS: HYDROcodone/APAP 5/325MG TABLET PO PRN ×3 (05:39→20:41)
[2022-10-05] MEDS: 0.9 % SODIUM CHLORIDE 10 ML SYRINGE IV SCH ×3 (05:40→21:47)
[2022-10-05 06:36] LABS: Basophils # (Auto) 0.05 K/mcL (0.00-0.30); Basophils % (Auto) 0.2 % (0.0-2.0); Eosinophils # (Auto) 0 K/mcL (0.00-0.70); Eosinophils % (Auto) 0 % (0.0-7.0); Hematocrit 38.2 % (34.1-44.9); Hemoglobin 11.6 g/dL (11.2-15.7); Lymphocytes # (Auto) 13.65 K/mcL (1.50-4.80); Lymphocytes % (Auto) 50.9 % (15.5-49.0); Mean Cell Volume 87.6 fL (80.0-100.0); Mean Corpuscular HGB Conc 30.4 g/dL (31.0-36.0); Mean Platelet Volume 10.1 fL (8.8-12.5); Monocytes # (Auto) 0.94 K/mcL (0.10-0.90); Monocytes % (Auto) 3.5 % (1.0-12.0); Neutrophils % (Auto) 44.9 % (38.0-78.0); Platelet Count 307 K/mcL (140-440); RBC 4.36 M/mcL (3.59-5.38); Red Cell Distribution Width 18.3 % (11.5-14.5)
[2022-10-05 06:56] LABS: ALT/SGPT 28 U/L (<40); AST/SGOT 73 U/L (<32); Albumin 2.6 gm/dL (3.2-5.2); Albumin/Globulin Ratio 0.7 (1.0-2.3); Alkaline Phosphatase 244 U/L (39-117); Bilirubin,Total 0.2 mg/dL (0.1-1.0); Blood Urea Nitrogen 12 mg/dL (8-23); Carbon Dioxide 25 mmol/L (22-30); Chloride 105 mmol/L (96-108); Globulin 3.9 gm/dL (2.2-3.7); Glomerular Filtration Rate 48; Glucose 135 mg/dL (70-105)
[2022-10-05 07:43] LABS: WBC 26.8 K/mcL (4.5-11.0)
[2022-10-05] MEDS: ENOXAPARIN 30 MG/0.3 ML SYRINGE SQ SCH (08:08)
[2022-10-05] MEDS: MEMANTINE 10 MG TABLET PO SCH ×2 (08:09→20:40)
[2022-10-05] MEDS: LEVOTHYROXINE 25 MCG TABLET PO SCH (08:09)
[2022-10-05] MEDS: DOCUSATE SODIUM 100 MG CAPSULE PO SCH ×2 (08:09→20:40)
[2022-10-05] MEDS: FLUoxetine HCL 20 MG CAPSULE PO SCH (08:09)
[2022-10-05] MEDS: NYSTATIN POWDER BOTTLE 15GM TOPICAL SCH ×2 (08:10→21:46)
[2022-10-05] MEDS: LEVOTHYROXINE SODIUM 112 MCG TABLET PO SCH (08:10)
[2022-10-05] MEDS: amLODIPine 5 MG TABLET PO SCH (08:10)
[2022-10-05] MEDS: ceFAZolin 1 GM VIAL IV SCH (08:31)
[2022-10-05] MEDS ORDERED: NON FORMULARY MEDICATION 1 DOSE MISCELL (Levothyroxine 137 mcg tablet) PO SCH (09:00)
--- NOTE | 2022-10-05 09:41 | Internal Med Progress Note ---
SUBJECTIVE Subjective Patient information: Note initiated : 10/05/22 at 9:38 am Service Date, if different from initiated Date: [] Patient: Siria Carreno a 76 y/o F admitted on 10/04/22 for Open Reduction & Internal Fixation of Right Hip . Chief Complaint: [] Interval history: Ms. Carreno is a 76 year old F past medical history of dementia, hypertensions, dyslipidemia, depressions, hypothyroidism, memory care facility resident, presenting with accidental fall. The fall was and weakness. It was reported that she was found on the ground in the cafeteria of the memory care facility. Patient recalls that she fell but she does not remember any details about the accident at all. Right now she denies of any of the hip pain. She is comfortable at the moment. Imaging done in our ED showing right intertrochanteric hip fractures. Orthopedic surgeon Dr. Francois notified it and would like to take the patient to the OR later today. 10/05: s/p ORIF of the right intertrochanteric femur fracture by Dr. Francois on 10/04. Patient tolerated the procedure well. Patient is coming of mild right hip pain this morning. She denies any shortness of breath. She is on 1 L/min nasal cannula oxygen. She is otherwise comfortable. Continue narcotics as needed for pain control of her right hip. Physical therapy Occupational Therapy evaluation and treatment for placement planning. Overall condition stable. Stay in [facility]. Constitutional Vitals: Vital Signs Temp Pulse Resp BP Pulse Ox O2 Del Method O2 Flow Rate 36.5 C 68 16 97/61 98 Nasal Cannula 1 10/05/22 08:00 10/05/22 08:00 10/05/22 08:00 10/05/22 08:00 10/05/22 08:00 10/05/22 08:00 10/05/22 08:00 Period Temp Pulse Resp BP Sys/Romero Pulse Ox O2 Del Method O2 Flow Rate Last 24 Hr 36.5 C-37.9 C 68-107 11-33 91-179/50-120 81-99 Nasal Cannula- Oxymask 1-6 Intake and Output 10/04/22 10/05/22 10/05/22 19:59 03:59 11:59 Intake Total 800 1000 50 Output Total 300 250 Balance 500 1000 -200 Weight 75.568 kg Intake & Output: Intake & Output 10/04/22 10/05/22 10/05/22 19:59 03:59 11:59 Intake Total 800 1000 50 Output Total 300 250 Balance 500 1000 -200 Weight 75.568 kg Intake: IV 50 1000 Sodium Chloride 0.9% 1,000 ml @ 1000 100 mls/hr IV .Q10H ABELARDO Rx#: [id number] Ancef 2 gm In Dextrose 5% in 50 Water 50 ml @ 100 mls/hr IV PREOP ABELARDO Rx#:[id number] Oral 50 IV - Manual Only 750 Output: Urine Catheter Amount 150 250 Estimated Blood Loss 150 Other: Urine Appearance Sediment Clear Uretheral (Lowery) Clear Clear Cloudy Urine Color Tea Colored Dark Yellow Uretheral ([place]y) Yellow Yellow Pale Urine Odor Normal Strong Head Head exam: Present atraumatic and normal inspection Eye Eye exam: Present normal appearance ENT ENT exam: Present mucous membranes moist, normal exam and normal external ear exam Neck Neck exam: Present normal inspection Respiratory Respiratory exam: Present normal respiratory exam Cardiovascular Cardiovascular exam: Present normal rate and rhythm GI/Abdominal GI/Abdominal exam: Present normal bowel sounds Extremities Exam Additional comments: Right lateral hip covered by surgical dressing. Back Exam Back exam: Present normal inspection Neurological Exam Neurological exam: Present alert and oriented X3 Skin Skin exam: Present intact and warm OBJ DATA Labs 10/05/22 05:47 10/05/22 05:47 Labs: Abnormal Lab Results 10/05/22 10/05/22 10/05/22 05:47 05:47 02:31 WBC 26.8 H MCHC 30.4 L RDW 18.3 H Immature Gran % (Auto) Neut % (Auto) Lymph % (Auto) 50.9 H Lymph # (Auto) 13.65 H [place] # (Auto) 0.94 H Immature Gran # 0.13 H Absolute Neutrophils 12.04 H Anion Gap 6.0 L Creatinine Glucose 135 H Calcium 8.0 L AST 73 H Alkaline Phosphatase 244 H Albumin 2.6 L Globulin 3.9 H Albumin/Globulin Ratio 0.7 L Urine Protein 30 A Urine RBC 18 H Hyaline Casts 13 H Urine Mucus Mod A 10/04/22 10/04/22 10:29 09:15 WBC 20.5 H MCHC RDW 18.3 H Immature Gran % (Auto) 0.8 H Neut % (Auto) 37.9 L Lymph % (Auto) 53.1 H Lymph # (Auto) 10.90 H [place] # (Auto) 1.54 H Immature Gran # 0.17 H Absolute Neutrophils Anion Gap Creatinine 1.2 H Glucose 109 H Calcium 8.5 L AST Alkaline Phosphatase 156 H Albumin 3.0 L Globulin 3.9 H Albumin/Globulin Ratio 0.8 L Urine Protein Urine RBC Hyaline Casts Urine Mucus Meds: Medications Acetaminophen (Acetaminophen 325 Mg Tablet) 650 mg PO Q6HP PRN; Protocol PRN Reason: Per Pain Protocol/Fever > 101 Hydrocodone Bitart/Acetaminophen (Hydrocodone/Apap 5/325mg Tablet) 0 tab PO Q4HP PRN; Protocol PRN Reason: Per Pain Protocol Last Admin: 10/05/22 05:39 Dose: 1 tab Albuterol/Ipratropium (Ipratropium/Albuterol 3 Ml Ampul.Neb) 3 ml NEB Q4HRT PRN PRN Reason: Wheezing Amlodipine Besylate (Amlodipine 5 Mg Tablet) 2.5 mg PO DAILY [facility] Last Admin: 10/05/22 08:10 Dose: 2.5 mg Atorvastatin Calcium (Atorvastatin 40 Mg Tablet) 40 mg PO QPM [facility] Last Admin: 10/04/22 22:29 Dose: 40 mg Bisacodyl (Bisacodyl 10 Mg Supp.Rect) 10 mg HI Q2-3DAYS PRN PRN Reason: Constipation Docusate Sodium (Docusate Sodium 100 Mg Capsule) 100 mg PO BID [facility] Last Admin: 10/05/22 08:09 Dose: 100 mg Donepezil HCl (Donepezil 10 Mg Tablet) 5 mg PO HS [facility] Last Admin: 10/04/22 22:28 Dose: 5 mg Enoxaparin Sodium (Enoxaparin 30 Mg/0.3 Ml Syringe) 40 mg SQ DAILY [facility] Last Admin: 10/05/22 08:08 Dose: 40 mg Fluoxetine HCl (Fluoxetine Hcl 20 Mg Capsule) 20 mg PO DAILY [facility] Last Admin: 10/05/22 08:09 Dose: 20 mg Sodium Chloride (Sodium Chloride 0.9%) 1,000 mls @ 100 mls/hr IV .Q10H [facility] Last Admin: 10/05/22 03:53 Dose: 100 mls/hr Latanoprost (Latanoprost Ophth Drops 2.5ml Bottle) 1 gtt OU HS [facility] Last Admin: 10/04/22 22:30 Dose: Not Given Levothyroxine Sodium (Levothyroxine Sodium 112 Mcg Tablet) 112 mcg PO QAMAC [facility] Last Admin: 10/05/22 08:10 Dose: 112 mcg Levothyroxine Sodium (Levothyroxine 25 Mcg Tablet) 25 mcg PO QAMAC [facility] Last Admin: 10/05/22 08:09 Dose: 25 mcg Magnesium Hydroxide (Magnesium Hydroxide 30 Ml Oral.Susp) 30 ml PO BIDP PRN PRN Reason: Constipation Memantine (Memantine 10 Mg Tablet) 10 mg PO BID [facility] Last Admin: 10/05/22 08:09 Dose: 10 mg Morphine Sulfate (Morphine 4 Mg/Ml Vial) 0 mg IV Q1HP PRN; Protocol PRN Reason: Per Pain Protocol Morphine Sulfate (Morphine 4 Mg/Ml Vial) 4 mg IV Q4HP PRN; Protocol PRN Reason: Per Pain Protocol Naproxen (Naproxen 250 Mg Tablet) 500 mg PO Q12HP PRN; Protocol PRN Reason: pain Nystatin (Nystatin Powder Bottle 15gm) 1 dose TOPICAL BID [facility] Last Admin: 10/05/22 08:10 Dose: Not Given Ondansetron HCl (Ondansetron 4 Mg/2 Ml Vial) 4 mg IV Q6HP PRN PRN Reason: Nausea And Vomiting Oxycodone HCl (Oxycodone Ir 5 Mg Tablet) 5 mg PO Q4HP PRN; Protocol PRN Reason: Per Pain Protocol Last Admin: 10/05/22 08:09 Dose: 5 mg Polyethylene Glycol (Polyethylene Glycol 3350 17 Gm Packet) 17 gm PO DAILYP PRN PRN Reason: Constipation Quetiapine Fumarate (Quetiapine 25 Mg Tablet) 25 mg PO [facility] Last Admin: 10/04/22 22:29 Dose: 25 mg Senna (Sennosides 1 Tablet) 2 tab PO [facility] Last Admin: 10/04/22 22:29 Dose: 2 tab Sodium Biphosphate/Sodium Phosphate (Fleets Adult Enema) 1 dose HI Q3-4DAYS PRN PRN Reason: Constipation Sodium Chloride (0.9 % Sodium Chloride 10 Ml Syringe) 10 ml IV Q8 [facility] Last Admin: 10/05/22 05:40 Dose: Not Given Throat Lozenges (Benzocaine/Menthol 1 Lozenge) 1 lozenge PO PRN PRN PRN Reason: Sore Throat Trazodone HCl (Trazodone Hcl 50 Mg Tablet) 25 mg PO HSP PRN PRN Reason: Insomnia A/P Assessment and plan (1) Intertrochanteric fracture of right femur: Status: Acute (2) Alzheimer disease: Status: Chronic (3) Hyperthyroidism: Status: Chronic (4) Essential hypertension: Status: Chronic (5) Dementia: Status: Chronic (6) Depression: Status: Chronic (7) Dyslipidemia: Status: Chronic Narrative A/P Narrative: Assessment and Plans: 1. Right intertrochanteric femur fracture: Inpatient MedSurg s/p ORIF of the right intertrochanteric femur fracture by Dr. Francois on 10/04 Lovenox as postsurgical DVT ppx Resume regular diet, saline lock Tylenol Naproxen Oxycodone Morphine Physical therapy evaluation and treatment Occupational Therapy evaluation and treatment 2. History of Alzheimer dementia: Donepezil Memantine 3. Depression Quetiapine 4. Essential hypertension: Norvasc Saline lock 5. Dyslipidemia: Continue Lipitor 6. Hypothyroidism: Continue thyroid replacement therapy GI prophylaxis: Not currently indicated DVT prophylaxis: Lovenox CODE STATUS: DNR Prognosis: Stable Disposition: Inpatient MedSurg Time Spent With Patient Time: Total time spent is greater than 50% in coordination of care (as documented) at patient's floor/unit and/or counseling patient: Subsequent: Total time with patient: 35 - 49 minutes
--- NOTE | 2022-10-05 11:55 | Orthopedic Progress Note ---
SUBJECTIVE Subjective Patient information: Note initiated : 10/05/22 at 11:53 am Service Date, if different from initiated Date: [] Patient: Siria Carreno 76 y/o F admitted on 10/04/22 for Open Reduction & Internal Fixation of Right Hip . Chief Complaint: [] Principal diagnosis: R hip IT fx-stable Constitutional Vitals: Vital Signs Temp Pulse Resp BP Pulse Ox O2 Del Method O2 Flow Rate 97.7 F 68 16 97/61 98 Nasal Cannula 1 10/05/22 08:00 10/05/22 08:00 10/05/22 08:00 10/05/22 08:00 10/05/22 08:00 10/05/22 08:00 10/05/22 08:00 Period Temp Pulse Resp BP Sys/Romero Pulse Ox O2 Del Method O2 Flow Rate Last 24 Hr 97.7 F-100.2 F 68-107 11-33 91-179/50-120 81-99 Nasal Cannula- Oxymask 1-6 Intake and Output 10/04/22 10/05/22 10/05/22 19:59 03:59 11:59 Intake Total 800 1000 50 Output Total 300 250 Balance 500 1000 -200 Weight 166 lb 9.6 oz Intake & Output: Intake & Output 10/04/22 10/05/22 10/05/22 19:59 03:59 11:59 Intake Total 800 1000 50 Output Total 300 250 Balance 500 1000 -200 Weight 166 lb 9.6 oz Intake: IV 50 1000 Sodium Chloride 0.9% 1,000 ml @ 1000 100 mls/hr IV .Q10H [facility] Rx#: [id number] Ancef 2 gm In Dextrose 5% in 50 Water 50 ml @ 100 mls/hr IV PREOP [facility] Rx#:[id number] Oral 50 IV - Manual Only 750 Output: Urine Catheter Amount 150 250 Estimated Blood Loss 150 Other: Urine Appearance Sediment Clear Uretheral (Lowery) Clear Clear Cloudy Urine Color Tea Colored Dark Yellow Uretheral ([place]y) Yellow Yellow Pale Urine Odor Normal Strong Additional findings Additional findings: bandages c/d/i nvi-distal OBJ DATA Labs 10/05/22 05:47 10/05/22 05:47 Labs: Abnormal Lab Results 10/05/22 10/05/22 10/05/22 05:47 05:47 02:31 WBC 26.8 H MCHC 30.4 L RDW 18.3 H Immature Gran % (Auto) Neut % (Auto) Lymph % (Auto) 50.9 H Lymph # (Auto) 13.65 H [place] # (Auto) 0.94 H Immature Gran # 0.13 H Absolute Neutrophils 12.04 H Anion Gap 6.0 L Creatinine Glucose 135 H Calcium 8.0 L AST 73 H Alkaline Phosphatase 244 H Albumin 2.6 L Globulin 3.9 H Albumin/Globulin Ratio 0.7 L Urine Protein 30 A Urine RBC 18 H Hyaline Casts 13 H Urine Mucus Mod A 10/04/22 10/04/22 10:29 09:15 WBC 20.5 H MCHC RDW 18.3 H Immature Gran % (Auto) 0.8 H Neut % (Auto) 37.9 L Lymph % (Auto) 53.1 H Lymph # (Auto) 10.90 H [place] # (Auto) 1.54 H Immature Gran # 0.17 H Absolute Neutrophils Anion Gap Creatinine 1.2 H Glucose 109 H Calcium 8.5 L AST Alkaline Phosphatase 156 H Albumin 3.0 L Globulin 3.9 H Albumin/Globulin Ratio 0.8 L Urine Protein Urine RBC Hyaline Casts Urine Mucus Meds: Medications Acetaminophen (Acetaminophen 325 Mg Tablet) 650 mg PO Q6HP PRN; Protocol PRN Reason: Per Pain Protocol/Fever > 101 Hydrocodone Bitart/Acetaminophen (Hydrocodone/Apap 5/325mg Tablet) 0 tab PO Q4HP PRN; Protocol PRN Reason: Per Pain Protocol Last Admin: 10/05/22 05:39 Dose: 1 tab Albuterol/Ipratropium (Ipratropium/Albuterol 3 Ml Ampul.Neb) 3 ml NEB Q4HRT PRN PRN Reason: Wheezing Amlodipine Besylate (Amlodipine 5 Mg Tablet) 2.5 mg PO DAILY [facility] Last Admin: 10/05/22 08:10 Dose: 2.5 mg Atorvastatin Calcium (Atorvastatin 40 Mg Tablet) 40 mg PO QPM [facility] Last Admin: 10/04/22 22:29 Dose: 40 mg Bisacodyl (Bisacodyl 10 Mg Supp.Rect) 10 mg GA Q2-3DAYS PRN PRN Reason: Constipation Docusate Sodium (Docusate Sodium 100 Mg Capsule) 100 mg PO BID [facility] Last Admin: 10/05/22 08:09 Dose: 100 mg Donepezil HCl (Donepezil 10 Mg Tablet) 5 mg PO [facility] Last Admin: 10/04/22 22:28 Dose: 5 mg Enoxaparin Sodium (Enoxaparin 30 Mg/0.3 Ml Syringe) 40 mg SQ DAILY [facility] Last Admin: 10/05/22 08:08 Dose: 40 mg Fluoxetine HCl (Fluoxetine Hcl 20 Mg Capsule) 20 mg PO DAILY [facility] Last Admin: 10/05/22 08:09 Dose: 20 mg Latanoprost (Latanoprost Ophth Drops 2.5ml Bottle) 1 gtt OU [facility] Last Admin: 10/04/22 22:30 Dose: Not Given Levothyroxine Sodium (Levothyroxine Sodium 112 Mcg Tablet) 112 mcg PO QAMAC [facility] Last Admin: 10/05/22 08:10 Dose: 112 mcg Levothyroxine Sodium (Levothyroxine 25 Mcg Tablet) 25 mcg PO QAMAC [facility] Last Admin: 10/05/22 08:09 Dose: 25 mcg Magnesium Hydroxide (Magnesium Hydroxide 30 Ml Oral.Susp) 30 ml PO BIDP PRN PRN Reason: Constipation Memantine (Memantine 10 Mg Tablet) 10 mg PO BID [facility] Last Admin: 10/05/22 08:09 Dose: 10 mg Morphine Sulfate (Morphine 4 Mg/Ml Vial) 0 mg IV Q1HP PRN; Protocol PRN Reason: Per Pain Protocol Morphine Sulfate (Morphine 4 Mg/Ml Vial) 4 mg IV Q4HP PRN; Protocol PRN Reason: Per Pain Protocol Naproxen (Naproxen 250 Mg Tablet) 500 mg PO Q12HP PRN; Protocol PRN Reason: pain Nystatin (Nystatin Powder Bottle 15gm) 1 dose TOPICAL BID [facility] Last Admin: 10/05/22 08:10 Dose: Not Given Ondansetron HCl (Ondansetron 4 Mg/2 Ml Vial) 4 mg IV Q6HP PRN PRN Reason: Nausea And Vomiting Oxycodone HCl (Oxycodone Ir 5 Mg Tablet) 5 mg PO Q4HP PRN; Protocol PRN Reason: Per Pain Protocol Last Admin: 10/05/22 08:09 Dose: 5 mg Polyethylene Glycol (Polyethylene Glycol 3350 17 Gm Packet) 17 gm PO DAILYP PRN PRN Reason: Constipation Quetiapine Fumarate (Quetiapine 25 Mg Tablet) 25 mg PO [facility] Last Admin: 10/04/22 22:29 Dose: 25 mg Senna (Sennosides 1 Tablet) 2 tab PO HS [facility] Last Admin: 10/04/22 22:29 Dose: 2 tab Sodium Biphosphate/Sodium Phosphate (Fleets Adult Enema) 1 dose GA Q3-4DAYS PRN PRN Reason: Constipation Sodium Chloride (0.9 % Sodium Chloride 10 Ml Syringe) 10 ml IV Q8 [facility] Last Admin: 10/05/22 05:40 Dose: Not Given Throat Lozenges (Benzocaine/Menthol 1 Lozenge) 1 lozenge PO PRN PRN PRN Reason: Sore Throat Trazodone HCl (Trazodone Hcl 50 Mg Tablet) 25 mg PO HSP PRN PRN Reason: Insomnia A/P Assessment and plan (1) Intertrochanteric fracture of right femur: Status: Acute Comment: Mobilize with PT Signing out Ortho service -f/u 2 weeks. -los out in 2 weeks. -weight bear as tolerated. Time Spent With Patient Time: Total time spent is greater than 50% in coordination of care (as documented) at patient's floor/unit and/or counseling patient:
--- NOTE | 2022-10-05 13:06 | Internal Med Progress Note ---
SUBJECTIVE Subjective Patient information: Note initiated : 10/05/22 at 1:03 pm Service Date, if different from initiated Date: [] Patient: Siria Carreno a 76 y/o F admitted on 10/04/22 for Open Reduction & Internal Fixation of Right Hip . Chief Complaint: [] Principal diagnosis: R hip IT fx-stable Interval history: Ms. Carreno is a 76 year old F past medical history of dementia, hypertensions, dyslipidemia, depressions, hypothyroidism, memory care facility resident, presenting with accidental fall. The fall was and weakness. It was reported that she was found on the ground in the cafeteria of the [facility] care facility. Patient recalls that she fell but she does not remember any details about the accident at all. Right now she denies of any of the hip pain. She is comfortable at the moment. Imaging done in our ED showing right intertrochanteric hip fractures. Orthopedic surgeon Dr. Francois notified it and would like to take the patient to the OR later today. 10/05: s/p ORIF of the right intertrochanteric femur fracture by Dr. Francois on 10/04. Patient tolerated the procedure well. Patient is coming of mild right hip pain this morning. She denies any shortness of breath. She is on 1 L/min nasal cannula oxygen. She is otherwise comfortable. Continue narcotics as needed for pain control of her right hip. Physical therapy Occupational Therapy evaluation and treatment for placement planning. Overall condition stable. Stay in [facility]. 10/06 Review of Systems: denies headache/fever/chills/nausea/vomiting/chest or abdominal pain/cough/dyspnea/diarrhea. Otherwise see above. PHYSICAL EXAM General: Alert, Awake, No acute Distress Eyes/N/T: EOMI, no scleral icterus, Head/Neck: neck supple, full ROM, CV: RRR, No murmurs, Pulm: Clear b/l, no wheezing/rhonchi/rales, no respiratory distress Abd: soft, nontender, +BS x4 Ext: no clubbing/cyanosis/edema, nontender. Right lateral hip covered by surgical dressing Neuro: Alert, no focal deficits, moves all extremities, , sensations intact b/l upper/lower Psychiatric: Skin: warm/dry, normal color Constitutional Vitals: Vital Signs Temp Pulse Resp BP Pulse Ox O2 Del Method O2 Flow Rate 98.0 F 81 16 114/75 98 Nasal Cannula 1 10/05/22 12:00 10/05/22 12:00 10/05/22 12:00 10/05/22 12:00 10/05/22 12:00 10/05/22 12:00 10/05/22 12:00 Period Temp Pulse Resp BP Sys/Romero Pulse Ox O2 Del Method O2 Flow Rate Last 24 Hr 97.7 F-100.2 F 68-107 11-33 91-179/50-120 81-99 Nasal Cannula- Oxymask 1-6 Intake and Output 10/05/22 10/05/22 10/05/22 03:59 11:59 19:59 Intake Total 1000 50 Output Total 250 Balance 1000 -200 Weight 75.568 kg 75.568 kg Patient Weight 10/06/22 03:59 Weight 75.568 kg Intake & Output: Intake & Output 10/05/22 10/05/22 10/05/22 03:59 11:59 19:59 Intake Total 1000 50 Output Total 250 Balance 1000 -200 Weight 75.568 kg 75.568 kg Intake: IV 1000 Sodium Chloride 0.9% 1,000 ml @ 1000 100 mls/hr IV .Q10H [facility] Rx#: [id number] Oral 50 Output: Urine Catheter Amount 250 Other: Urine Appearance Clear Uretheral (Lowery) Clear Cloudy Urine Color Dark Yellow Uretheral ([place]y) Yellow Pale Urine Odor Strong OBJ DATA Labs 10/05/22 05:47 10/05/22 05:47 Labs: Abnormal Lab Results 10/05/22 10/05/22 10/05/22 05:47 05:47 02:31 WBC 26.8 H MCHC 30.4 L RDW 18.3 H Immature Gran % (Auto) Neut % (Auto) Lymph % (Auto) 50.9 H Lymph # (Auto) 13.65 H [place] # (Auto) 0.94 H Immature Gran # 0.13 H Absolute Neutrophils 12.04 H Anion Gap 6.0 L Creatinine Glucose 135 H Calcium 8.0 L AST 73 H Alkaline Phosphatase 244 H Albumin 2.6 L Globulin 3.9 H Albumin/Globulin Ratio 0.7 L Urine Protein 30 A Urine RBC 18 H Hyaline Casts 13 H Urine Mucus Mod A 10/04/22 10/04/22 10:29 09:15 WBC 20.5 H MCHC RDW 18.3 H Immature Gran % (Auto) 0.8 H Neut % (Auto) 37.9 L Lymph % (Auto) 53.1 H Lymph # (Auto) 10.90 H [place] # (Auto) 1.54 H Immature Gran # 0.17 H Absolute Neutrophils Anion Gap Creatinine 1.2 H Glucose 109 H Calcium 8.5 L AST Alkaline Phosphatase 156 H Albumin 3.0 L Globulin 3.9 H Albumin/Globulin Ratio 0.8 L Urine Protein Urine RBC Hyaline Casts Urine Mucus Meds: Medications Acetaminophen (Acetaminophen 325 Mg Tablet) 650 mg PO Q6HP PRN; Protocol PRN Reason: Per Pain Protocol/Fever > 101 Hydrocodone Bitart/Acetaminophen (Hydrocodone/Apap 5/325mg Tablet) 0 tab PO Q4HP PRN; Protocol PRN Reason: Per Pain Protocol Last Admin: 10/05/22 12:51 Dose: 2 tab Albuterol/Ipratropium (Ipratropium/Albuterol 3 Ml Ampul.Neb) 3 ml NEB Q4HRT PRN PRN Reason: Wheezing Amlodipine Besylate (Amlodipine 5 Mg Tablet) 2.5 mg PO DAILY [facility] Last Admin: 10/05/22 08:10 Dose: 2.5 mg Atorvastatin Calcium (Atorvastatin 40 Mg Tablet) 40 mg PO QPM [facility] Last Admin: 10/04/22 22:29 Dose: 40 mg Bisacodyl (Bisacodyl 10 Mg Supp.Rect) 10 mg AR Q2-3DAYS PRN PRN Reason: Constipation Docusate Sodium (Docusate Sodium 100 Mg Capsule) 100 mg PO BID [facility] Last Admin: 10/05/22 08:09 Dose: 100 mg Donepezil HCl (Donepezil 10 Mg Tablet) 5 mg PO HS [facility] Last Admin: 10/04/22 22:28 Dose: 5 mg Enoxaparin Sodium (Enoxaparin 30 Mg/0.3 Ml Syringe) 40 mg SQ DAILY [facility] Last Admin: 10/05/22 08:08 Dose: 40 mg Fluoxetine HCl (Fluoxetine Hcl 20 Mg Capsule) 20 mg PO DAILY [facility] Last Admin: 10/05/22 08:09 Dose: 20 mg Latanoprost (Latanoprost Ophth Drops 2.5ml Bottle) 1 gtt OU HS [facility] Last Admin: 10/04/22 22:30 Dose: Not Given Levothyroxine Sodium (Levothyroxine Sodium 112 Mcg Tablet) 112 mcg PO QAMAC [facility] Last Admin: 10/05/22 08:10 Dose: 112 mcg Levothyroxine Sodium (Levothyroxine 25 Mcg Tablet) 25 mcg PO QAMAC [facility] Last Admin: 10/05/22 08:09 Dose: 25 mcg Magnesium Hydroxide (Magnesium Hydroxide 30 Ml Oral.Susp) 30 ml PO BIDP PRN PRN Reason: Constipation Memantine (Memantine 10 Mg Tablet) 10 mg PO BID [facility] Last Admin: 10/05/22 08:09 Dose: 10 mg Morphine Sulfate (Morphine 4 Mg/Ml Vial) 0 mg IV Q1HP PRN; Protocol PRN Reason: Per Pain Protocol Morphine Sulfate (Morphine 4 Mg/Ml Vial) 4 mg IV Q4HP PRN; Protocol PRN Reason: Per Pain Protocol Naproxen (Naproxen 250 Mg Tablet) 500 mg PO Q12HP PRN; Protocol PRN Reason: pain Nystatin (Nystatin Powder Bottle 15gm) 1 dose TOPICAL BID [facility] Last Admin: 10/05/22 08:10 Dose: Not Given Ondansetron HCl (Ondansetron 4 Mg/2 Ml Vial) 4 mg IV Q6HP PRN PRN Reason: Nausea And Vomiting Oxycodone HCl (Oxycodone Ir 5 Mg Tablet) 5 mg PO Q4HP PRN; Protocol PRN Reason: Per Pain Protocol Last Admin: 10/05/22 08:09 Dose: 5 mg Polyethylene Glycol (Polyethylene Glycol 3350 17 Gm Packet) 17 gm PO DAILYP PRN PRN Reason: Constipation Quetiapine Fumarate (Quetiapine 25 Mg Tablet) 25 mg PO [facility] Last Admin: 10/04/22 22:29 Dose: 25 mg Senna (Sennosides 1 Tablet) 2 tab PO [facility] Last Admin: 10/04/22 22:29 Dose: 2 tab Sodium Biphosphate/Sodium Phosphate (Fleets Adult Enema) 1 dose AR Q3-4DAYS PRN PRN Reason: Constipation Sodium Chloride (0.9 % Sodium Chloride 10 Ml Syringe) 10 ml IV Q8 [facility] Last Admin: 10/05/22 05:40 Dose: Not Given Throat Lozenges (Benzocaine/Menthol 1 Lozenge) 1 lozenge PO PRN PRN PRN Reason: Sore Throat Trazodone HCl (Trazodone Hcl 50 Mg Tablet) 25 mg PO HSP PRN PRN Reason: Insomnia A/P Narrative A/P Narrative: Assessment and Plans: *Right intertrochanteric femur fracture: s/p ORIF Dr. Francois (10/04) -Tylenol, Naproxen, Oxycodone, Morphine -Physical therapy evaluation and treatment, Occupational Therapy evaluation and treatment *History of Alzheimer dementia: -Donepezil , Memantine *Depression -Quetiapine *HTN/HLD: -Norvasc -Lipitor *Hypothyroidism: -Continue thyroid replacement therapy *CLL: Leukocytosis chronic *prophylaxis: Lovenox CODE STATUS: DNR Time Spent With Patient Time: Total time spent is greater than 50% in coordination of care (as documented) at patient's floor/unit and/or counseling patient:
[2022-10-05] MEDS: SENNOSIDES 1 TABLET PO SCH (20:40)
[2022-10-05] MEDS: QUEtiapine 25 MG TABLET PO SCH (20:40)
[2022-10-05] MEDS: ATORVASTATIN 40 MG TABLET PO SCH (20:40)
[2022-10-05] MEDS: DONEPEZIL 10 MG TABLET PO SCH (20:41)
[2022-10-05] MEDS: LATANOPROST OPHTH DROPS 2.5ML BOTTLE OU SCH (21:39)
[2022-10-06] MEDS ORDERED: ONDANSETRON 4 MG ODT TABLET SL PRN (00:02)
--- NOTE | 2022-10-06 07:36 | Internal Med Progress Note ---
SUBJECTIVE Subjective Patient information: Note initiated : 10/06/22 at 7:34 am Service Date, if different from initiated Date: [] Patient: Siria Carreno a 76 y/o F admitted on 10/04/22 for Open Reduction & Internal Fixation of Right Hip . Chief Complaint: [] Principal diagnosis: R hip IT fx-stable Interval history: Ms. Carreno is a 76 year old F past medical history of dementia, hypertensions, dyslipidemia, depressions, hypothyroidism, memory care facility resident, presenting with accidental fall. The fall was and weakness. It was reported that she was found on the ground in the cafeteria of the [facility] care facility. Patient recalls that she fell but she does not remember any details about the accident at all. Right now she denies of any of the hip pain. She is comfortable at the moment. Imaging done in our ED showing right intertrochanteric hip fractures. Orthopedic surgeon Dr. Francois notified it and would like to take the patient to the OR later today. 10/05: s/p ORIF of the right intertrochanteric femur fracture by Dr. Francois on 10/04. Patient tolerated the procedure well. Patient is coming of mild right hip pain this morning. She denies any shortness of breath. She is on 1 L/min nasal cannula oxygen. She is otherwise comfortable. Continue narcotics as needed for pain control of her right hip. Physical therapy Occupational Therapy evaluation and treatment for placement planning. Overall condition stable. Stay in [facility]. 10/06 Patient complains of poor sleep. Leg pain. Continue working with physical therapy. Hip per orthopedic surgery. Continue incentive spirometry and mobility. Review of Systems: denies headache/fever/chills/nausea/vomiting/chest or abdominal pain/c ough/dyspnea/diarrhea. Otherwise see above. PHYSICAL EXAM General: Alert, Awake, No acute Distress Eyes/N/T: EOMI, no scleral icterus, Head/Neck: neck supple, full ROM, CV: RRR, 3/6SM Pulm: Clear b/l, no wheezing/rhonchi/rales, no respiratory distress Abd: soft, nontender, +BS x4 Ext: no clubbing/cyanosis, trace b/l LE edema, nontender. Right lateral hip covered by surgical dressing Neuro: Alert, no focal deficits, moves all extremities, , sensations intact b/l upper/lower Psychiatric: Skin: warm/dry, normal color Constitutional Vitals: Vital Signs Temp Pulse Resp BP Pulse Ox O2 Del Method O2 Flow Rate 97.7 F 74 20 110/64 95 Room Air 1 10/05/22 23:28 10/06/22 04:10 10/06/22 04:10 10/06/22 04:10 10/06/22 04:10 10/06/22 04:10 10/05/22 16:00 Period Temp Pulse Resp BP Sys/Romero Pulse Ox O2 Del Method O2 Flow Rate Last 24 Hr 97.7 F-98.0 F 60-81 16-20 97-114/61-75 95-98 Nasal Cannula- Room Air 1-1 Intake and Output 10/05/22 10/06/22 10/06/22 19:59 03:59 11:59 Intake Total 1420 100 100 Output Total 360 150 Balance 1060 100 -50 Weight 75.568 kg 75.614 kg Intake & Output: Intake & Output 10/05/22 10/06/22 10/06/22 19:59 03:59 11:59 Intake Total 1420 100 100 Output Total 360 150 Balance 1060 100 -50 Weight 75.568 kg 75.614 kg Intake: IV 1000 Sodium Chloride 0.9% 1,000 ml @ 1000 100 mls/hr IV .Q10H [facility] Rx#: [id number] Oral 420 100 100 Output: Urine Catheter Amount 150 Void Amount 360 Other: Meal Lunch Percent of Meal Consumed 25% Urine Appearance Clear Clear Uretheral (Lowery) Clear Urine Color Yellow Dark Yellow Uretheral ([place]) Yellow Urine Odor Normal OBJ DATA Labs 10/05/22 05:47 10/05/22 05:47 Labs: Abnormal Lab Results 10/05/22 10/05/22 10/05/22 05:47 05:47 02:31 WBC 26.8 H MCHC 30.4 L RDW 18.3 H Immature Gran % (Auto) Neut % (Auto) Lymph % (Auto) 50.9 H Lymph # (Auto) 13.65 H [place] # (Auto) 0.94 H Immature Gran # 0.13 H Absolute Neutrophils 12.04 H Anion Gap 6.0 L Creatinine Glucose 135 H Calcium 8.0 L AST 73 H Alkaline Phosphatase 244 H Albumin 2.6 L Globulin 3.9 H Albumin/Globulin Ratio 0.7 L Urine Protein 30 A Urine RBC 18 H Hyaline Casts 13 H Urine Mucus Mod A 10/04/22 10/04/22 10:29 09:15 WBC 20.5 H MCHC RDW 18.3 H Immature Gran % (Auto) 0.8 H Neut % (Auto) 37.9 L Lymph % (Auto) 53.1 H Lymph # (Auto) 10.90 H [place] # (Auto) 1.54 H Immature Gran # 0.17 H Absolute Neutrophils Anion Gap Creatinine 1.2 H Glucose 109 H Calcium 8.5 L AST Alkaline Phosphatase 156 H Albumin 3.0 L Globulin 3.9 H Albumin/Globulin Ratio 0.8 L Urine Protein Urine RBC Hyaline Casts Urine Mucus Meds: Medications Acetaminophen (Acetaminophen 325 Mg Tablet) 650 mg PO Q6HP PRN; Protocol PRN Reason: Per Pain Protocol/Fever > 101 Hydrocodone Bitart/Acetaminophen (Hydrocodone/Apap 5/325mg Tablet) 0 tab PO Q4HP PRN; Protocol PRN Reason: Per Pain Protocol Last Admin: 10/05/22 20:41 Dose: 2 tab Albuterol/Ipratropium (Ipratropium/Albuterol 3 Ml Ampul.Neb) 3 ml NEB Q4HRT PRN PRN Reason: Wheezing Amlodipine Besylate (Amlodipine 5 Mg Tablet) 2.5 mg PO DAILY [facility] Last Admin: 10/05/22 08:10 Dose: 2.5 mg Atorvastatin Calcium (Atorvastatin 40 Mg Tablet) 40 mg PO QPM [facility] Last Admin: 10/05/22 20:40 Dose: 40 mg Bisacodyl (Bisacodyl 10 Mg Supp.Rect) 10 mg RI Q2-3DAYS PRN PRN Reason: Constipation Docusate Sodium (Docusate Sodium 100 Mg Capsule) 100 mg PO BID [facility] Last Admin: 10/05/22 20:40 Dose: 100 mg Donepezil HCl (Donepezil 10 Mg Tablet) 5 mg PO HS [facility] Last Admin: 10/05/22 20:41 Dose: 5 mg Enoxaparin Sodium (Enoxaparin 30 Mg/0.3 Ml Syringe) 40 mg SQ DAILY [facility] Last Admin: 10/05/22 08:08 Dose: 40 mg Fluoxetine HCl (Fluoxetine Hcl 20 Mg Capsule) 20 mg PO DAILY [facility] Last Admin: 10/05/22 08:09 Dose: 20 mg Latanoprost (Latanoprost Ophth Drops 2.5ml Bottle) 1 gtt OU [facility] Last Admin: 10/05/22 21:39 Dose: Not Given Levothyroxine Sodium (Levothyroxine Sodium 112 Mcg Tablet) [facility] Last Admin: 10/05/22 08:10 Dose: 112 mcg Levothyroxine Sodium (Levothyroxine 25 Mcg Tablet) 25 mcg PO QAMAC [facility] Last Admin: 10/05/22 08:09 Dose: 25 mcg Magnesium Hydroxide (Magnesium Hydroxide 30 Ml Oral.Susp) 30 ml PO BIDP PRN PRN Reason: Constipation Memantine (Memantine 10 Mg Tablet) 10 mg PO BID [facility] Last Admin: 10/05/22 20:40 Dose: 10 mg Naproxen (Naproxen 250 Mg Tablet) 500 mg PO Q12HP PRN; Protocol PRN Reason: pain Nystatin (Nystatin Powder Bottle 15gm) 1 dose TOPICAL BID [facility] Last Admin: 10/05/22 21:46 Dose: Not Given Ondansetron HCl (Ondansetron 4 Mg Odt Tablet) 4 mg SL Q6HP PRN PRN Reason: Nausea And Vomiting Oxycodone HCl (Oxycodone Ir 5 Mg Tablet) 5 mg PO Q4HP PRN; Protocol PRN Reason: Per Pain Protocol Last Admin: 10/05/22 08:09 Dose: 5 mg Polyethylene Glycol (Polyethylene Glycol 3350 17 Gm Packet) 17 gm PO DAILYP PRN PRN Reason: Constipation Quetiapine Fumarate (Quetiapine 25 Mg Tablet) 25 mg PO [facility] Last Admin: 10/05/22 20:40 Dose: 25 mg Senna (Sennosides 1 Tablet) 2 tab PO [facility] Last Admin: 10/05/22 20:40 Dose: 2 tab Sodium Biphosphate/Sodium Phosphate (Fleets Adult Enema) 1 dose RI Q3-4DAYS PRN PRN Reason: Constipation Throat Lozenges (Benzocaine/Menthol 1 Lozenge) 1 lozenge PO PRN PRN PRN Reason: Sore Throat Trazodone HCl (Trazodone Hcl 50 Mg Tablet) 25 mg PO HSP PRN PRN Reason: Insomnia A/P Narrative A/P Narrative: Assessment and Plans: *Right Hip Fx: s/p ORIF Dr. Francois (4/28) -Tylenol, Naproxen, Oxycodone, Morphine -Physical therapy evaluation and treatment, Occupational Therapy evaluation and treatment *History of Alzheimer dementia: -Donepezil , Memantine -delirium precautions *Depression -Quetiapine *HTN/HLD: -Norvasc , -Lipitor *Hypothyroidism: -Continue thyroid replacement therapy *CLL: Leukocytosis chronic *prophylaxis: Lovenox CODE STATUS: DNR Time Spent With Patient Time: Total time spent is greater than 50% in coordination of care (as documented) at patient's floor/unit and/or counseling patient: Subsequent: Total time with patient: 35 - 49 minutes
[2022-10-06] MEDS: HYDROcodone/APAP 5/325MG TABLET PO PRN ×2 (08:43→23:45)
[2022-10-06] MEDS: ENOXAPARIN 30 MG/0.3 ML SYRINGE SQ SCH (08:43)
[2022-10-06] MEDS: NYSTATIN POWDER BOTTLE 15GM TOPICAL SCH ×2 (08:44→20:16)
[2022-10-06] MEDS: FLUoxetine HCL 20 MG CAPSULE PO SCH (08:44)
[2022-10-06] MEDS: LEVOTHYROXINE 25 MCG TABLET PO SCH (08:44)
[2022-10-06] MEDS: DOCUSATE SODIUM 100 MG CAPSULE PO SCH ×2 (08:45→20:14)
[2022-10-06] MEDS: amLODIPine 5 MG TABLET PO SCH (08:45)
[2022-10-06] MEDS: MEMANTINE 10 MG TABLET PO SCH ×2 (08:45→20:14)
[2022-10-06] MEDS: LEVOTHYROXINE SODIUM 112 MCG TABLET PO SCH (08:46)
[2022-10-06] MEDS ORDERED: diphenhydrAMINE 25 MG CAPSULE PO PRN (09:23)
--- NOTE | 2022-10-06 11:04 | Discharge Summary ---
Discharge Provider Provider IMPORTANT FOLLOW-UP INFORMATION FOR PCP: Patient information: Note initiated : 10/06/22 at 11:04 am Service Date, if different from initiated Date: [] Patient: Siria Carreno 76 y/o F admitted on 10/04/22 for Open Reduction & Internal Fixation of Right Hip . Chief Complaint: [] Date of admission: 10/04/22 17:29 Discharge date: 10/08/22 Primary care physician: Raj Good MD Consults: 10/04/22 Consult to Physician [CONS] Stat Comment: Consulting Provider: Dale Francois Reason For Exam: Physician to Consult Consult to Physician [CONS] Stat Comment: Consulting Provider: Lanre Finch Reason For Exam: Physician to Consult COURSE Hospital Course Hospital course: Ms. Carreno is a 76 year old F past medical history of dementia, hypertensions, dyslipidemia, depressions, hypothyroidism, [facility] care facility resident, presenting with accidental fall. The fall was and weakness. It was reported that she was found on the ground in the cafeteria of the memory care facility. Patient recalls that she fell but she does not remember any details about the accident at all. Right now she denies of any of the hip pain. She is comfortable at the moment. Imaging done in our ED showing right intertrochanteric hip fractures. Orthopedic surgeon Dr. Francois notified it and would like to take the patient to the OR later today. 10/05: s/p ORIF of the right intertrochanteric femur fracture by Dr. Francois on 10/04. Patient tolerated the procedure well. Patient is coming of mild right hip pain this morning. She denies any shortness of breath. She is on 1 L/min nasal cannula oxygen. She is otherwise comfortable. Continue narcotics as needed for pain control of her right hip. Physical therapy Occupational Therapy evaluation and treatment for placement planning. Overall condition stable. Stay in [facility]. 10/06 Patient complains of poor sleep. Leg pain. Continue working with physical therapy. Hip per orthopedic surgery. Continue incentive spirometry and mobility. 10/07 Patient lying in bed awake. No overnight event or new complaints. When asked how she is doing she says she does not know. Working with physical therapy and working on placement. 10/08 No overnight event or new complaints. Patient stable for discharge Assessment and Plans: *Right Hip Fx: s/p ORIF Dr. Francois (10/04) *History of Alzheimer dementia: *Depression *HTN/HLD: *Hypothyroidism: *CLL: Discharge diagnosis: Right hip fracture Secondary discharge diagnosis: Alzheimer's depression hypertension hypothyroidism CLL Time Spent with Patient Time attestation: Total time spent providing and/or coordinating discharge services: Time spent: Greater than 30 minutes EXAM Constitutional Vitals: Temp Pulse Resp BP Pulse Ox O2 Del Method O2 Flow Rate 97.9 F 74 16 123/66 94 Room Air 1 10/06/22 08:00 10/06/22 08:00 10/06/22 08:00 10/06/22 08:00 10/06/22 08:00 10/06/22 08:00 10/05/22 16:00 Discharge Plan Patient/Caregiver Discharge Instructions Activity: increase activity as tolerated Diet: Regular Diet Prescriptions: New hydrocodone-acetaminophen 5-325 mg Tablet 1 tab PO Q8HP PRN (Reason: Per Pain Protocol) Qty: 20 0RF Continued levothyroxine 137 mcg tablet 137 mcg PO QDAY Qty: 90 3RF quetiapine 25 mg tablet 25 mg PO HS Qty: 90 1RF fluoxetine 20 mg tablet 20 mg PO QAM amlodipine 2.5 mg tablet 2.5 mg PO QAM atorvastatin [Lipitor] 40 mg tablet 40 mg PO QPM memantine [Namenda] 10 mg tablet 10 mg PO BID ibuprofen 200 mg capsule 600 mg PO Q8H PRN (Reason: Pain) nystatin [Nyamyc] 100,000 unit/gram powder 10,000 unit topical BID naproxen 500 mg tablet 500 mg PO Q12H PRN (Reason: pain) donepezil 5 mg tablet 5 mg PO QHS Qty: 90 2RF acetaminophen [Tylenol] 325 mg tablet 650 mg PO Q4H PRN (Reason: Pain) latanoprost 0.005 % drops 1 drp OPHTHALMIC (EYE) HS Follow Up Plan Follow up with: Dale Francois MD [Physician] - Raj Good MD [Primary Care Provider] - Patient Disposition: Xfer SNF Prognosis: Fair Rehab Potential: Fair I certify that the patient requires SNF services: Yes Overall status at discharge: patient is progressing back to baseline Discharge Orders: Discharge Order (Routine); Ordered 10/08/22 Ordered By: Alexey Vargas
[2022-10-06] MEDS: 0.9 % SODIUM CHLORIDE 500 ML IV SCH ×2 (18:27→23:38)
--- NOTE | 2022-10-06 19:22 | EKG ---
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
[2022-10-06] MEDS: SENNOSIDES 1 TABLET PO SCH (20:14)
[2022-10-06] MEDS: DONEPEZIL 10 MG TABLET PO SCH (20:14)
[2022-10-06] MEDS: MELATONIN 3 MG TABLET PO SCH (20:15)
[2022-10-06] MEDS: QUEtiapine 25 MG TABLET PO SCH (20:15)
[2022-10-06] MEDS: ATORVASTATIN 40 MG TABLET PO SCH (20:15)
[2022-10-06] MEDS: LATANOPROST OPHTH DROPS 2.5ML BOTTLE OU SCH (20:16)
[2022-10-07] MEDS: 0.9 % SODIUM CHLORIDE 500 ML IV SCH ×2 (05:06→12:03)
[2022-10-07] MEDS: LEVOTHYROXINE SODIUM 112 MCG TABLET PO SCH (07:11)
[2022-10-07] MEDS: LEVOTHYROXINE 25 MCG TABLET PO SCH (07:11)
--- NOTE | 2022-10-07 07:59 | Operative Note ---
DATE OF OPERATION: 10/04/2022 DATE OF PROCEDURE: 10/04/2022 PREOPERATIVE DIAGNOSIS: Right hip closed intertrochanteric fracture, comminuted. POSTOPERATIVE DIAGNOSIS: Right hip closed intertrochanteric fracture, comminuted. PROCEDURE PERFORMED: Open treatment and internal fixation of the right intertrochanteric hip fracture with intramedullary fixation using a Toi short gamma nail. SURGEON: Dale Francois M.D. GRADE TEACHER: Saulo Núñez PA-C. This providers expertise and technical skill were required throughout the case. The PA assisted with preoperative coordination, intraoperative retraction, wound closure, and dressing and splint application, as well as postoperative documentation and care coordination. ANESTHESIA: General. DRAINS: None. SPECIMENS: None. COMPLICATIONS: None. ESTIMATED BLOOD LOSS: 100 mL. POSTOPERATIVE CONDITION: Stable. INDICATIONS FOR SURGERY: This is a 76-year-old female with dementia who was previously ambulatory, who sustained an unwitnessed ground level fall. She complained of right hip pain and had inability to bear weight. IMAGING: X-rays taken at the Emergency Department showed a comminuted intertrochanteric hip fracture with severe osteopenia. INTRAOPERATIVE FINDINGS: Comminuted intertrochanteric fracture with AT SURGERY: Severe osteopenia. Post-fixation showed satisfactory component position and fracture reduction. PROCEDURE IN DETAIL: The patient had been seen preoperatively with her daughter who had power of banking attorney and informed consent had been obtained after discussion of risks and benefits of surgery. Risks included, but not limited to, bleeding; infection; injury to nerves, blood vessels, other surrounding structures, anesthetic risks; nonunion or malunion of the fracture; failure of hardware fixation, DVT and pulmonary embolus risks, heart attack, stroke, or . Her daughter understood these risks and wished for us to proceed. Correct operative site was marked and the patient was taken to the operating room. General anesthesia induced. She was carefully positioned on the fracture table and the left lower extremity was flexed and abducted and carefully padded out of the way. The right lower extremity was then placed in some traction with some internal rotation. Fluoroscopy was brought in to check reduction. A few minor adjustments were made to get a good reduction and then right lower extremity was carefully prepped and draped in normal sterile fashion. Timeout was performed verifying patient name, operative site, and plan. Incision was made just proximal to the trochanter in line with the femur through skin and subcutaneous tissue. Hemostasis was obtained with Bovie cautery. I continued down with the Bovie down through the IT band. Blunt finger dissection was used to palpate down onto the tip of the trochanter, which was comminuted. A threaded guide pin was passed from the tip of the trochanter down the shaft of the femur and checked on the lateral view to verify position. We then used our opening reamer for the gamma nail and then a short 125 nail was opened. This was passed over the guide pin until the lag screw would be approximately central in the femoral neck. A stab incision was made where the sleeve contacted skin and then the sleeves were taken down to bone. We drilled the cortex with the drill and then switched and used the threaded guide pin. Minor adjustments were made to place this central or just below a center line and the AP view. The lateral view we adjusted until we were central within the head. This was taken up to the subchondral bone. Depth gauge was used to measure and then a step reamer was set to the 85 mm that we measured. We then reamed. A lag screw was then advanced over the guide pin until we were less than a centimeter from the articular surface on both views and then to reasonably good subchondral bone. We then advanced the locking screw into the proximal end of the nail and tightened this and then back turned 1/4 turn to allow sliding compression. These were removed and the guide pin was removed and then we went with a jig placed in the static position and made a stab incision where the sleeve contacted bone and these were taken down to bone. We then drilled bicortically, measuring off the drill an appropriate length. A distal screw was placed. Once this was placed, final fluoro images were taken, AP and lateral, proximal and distal. It showed satisfactory hardware position and fracture alignment. We irrigated with saline, and then #1 Vicryl was used to close the IT band, 2-0 Monocryl was used for subcutaneous closure and los for skin. Xeroform and a sterile dressing were applied. The patient was then awakened, extubated, and transferred to recovery in stable condition. BJB:[email or web address] Job ID: [id number] Doc ID: [id number] Dale Francois MD
[2022-10-07] MEDS: DOCUSATE SODIUM 100 MG CAPSULE PO SCH ×2 (08:37→21:20)
[2022-10-07] MEDS: amLODIPine 5 MG TABLET PO SCH (08:38)
[2022-10-07] MEDS: FLUoxetine HCL 20 MG CAPSULE PO SCH (08:39)
[2022-10-07] MEDS: MEMANTINE 10 MG TABLET PO SCH ×2 (08:49→21:21)
[2022-10-07] MEDS: ENOXAPARIN 40 MG/0.4 ML SYRINGE SQ SCH (09:00)
--- NOTE | 2022-10-07 09:13 | EKG ---
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 Measurements Intervals [place] Rate: 81 P: -2 MN: 214 QRS: 14 QRSD: 90 T: 7 QT: 397 QTc: 461 Interpretive Statements Sinus rhythm Borderline prolonged [place] interval Borderline low voltage, extremity leads Electronically Signed On 10-07-2022 9:13:06 PDT by Han Watts M.D. /store/M0/[id number]/[id number]
[2022-10-07] MEDS: HYDROcodone/APAP 5/325MG TABLET PO PRN (09:45)
--- NOTE | 2022-10-07 10:01 | Internal Med Progress Note ---
SUBJECTIVE Subjective Patient information: Note initiated : 10/07/22 at 10:00 am Service Date, if different from initiated Date: [] Patient: Siria Carreno a 76 y/o F admitted on 10/04/22 for Open Reduction & Internal Fixation of Right Hip . Chief Complaint: [] Principal diagnosis: R hip IT fx-stable Interval history: Ms. Carreno is a 76 year old F past medical history of dementia, hypertensions, dyslipidemia, depressions, hypothyroidism, memory care facility resident, presenting with accidental fall. The fall was and weakness. It was reported that she was found on the ground in the cafeteria of the [facility] care facility. Patient recalls that she fell but she does not remember any details about the accident at all. Right now she denies of any of the hip pain. She is comfortable at the moment. Imaging done in our ED showing right intertrochanteric hip fractures. Orthopedic surgeon Dr. Francois notified it and would like to take the patient to the OR later today. 10/05: s/p ORIF of the right intertrochanteric femur fracture by Dr. Francois on 10/04. Patient tolerated the procedure well. Patient is coming of mild right hip pain this morning. She denies any shortness of breath. She is on 1 L/min nasal cannula oxygen. She is otherwise comfortable. Continue narcotics as needed for pain control of her right hip. Physical therapy Occupational Therapy evaluation and treatment for placement planning. Overall condition stable. Stay in [facility]. 10/06 Patient complains of poor sleep. Leg pain. Continue working with physical therapy. Hip per orthopedic surgery. Continue incentive spirometry and mobility. 10/07 Patient lying in bed awake. No overnight event or new complaints. When asked how she is doing she says she does not know. Working with physical therapy and working on placement. Review of Systems: denies headache/fever/chills/nausea/vomiting/chest or abdominal pain/cough/dyspnea/diarrhea. Otherwise see above. PHYSICAL EXAM General: Alert, Awake, No acute Distress Eyes/N/T: EOMI, no scleral icterus, Head/Neck: neck supple, full ROM, CV: RRR, 3/6SM Pulm: Clear b/l, no wheezing/rhonchi/rales, no respiratory distress Abd: soft, nontender, +BS x4 Ext: no clubbing/cyanosis, trace b/l LE edema, nontender. Right lateral hip covered by surgical dressing Neuro: Alert, no focal deficits, moves all extremities, , sensations intact b/l upper/lower Psychiatric: Skin: warm/dry, normal color Constitutional Vitals: Vital Signs Temp Pulse Resp BP Pulse Ox O2 Del Method O2 Flow Rate 97.7 F 85 16 143/73 94 Room Air 1 10/07/22 07:05 10/07/22 07:05 10/07/22 07:05 10/07/22 07:05 10/07/22 07:05 10/07/22 07:05 10/05/22 16:00 Period Temp Pulse Resp BP Sys/Romero Pulse Ox O2 Del Method O2 Flow Rate Last 24 Hr 97.7 F-99.0 F 74-85 16-20 115-144/55-73 92-97 Room Air-Room Air Intake and Output 10/06/22 10/07/22 10/07/22 19:59 03:59 11:59 Intake Total 480 500 900 Output Total 200 250 Balance 280 250 900 Weight 80.104 kg Intake & Output: Intake & Output 10/06/22 10/07/22 10/07/22 19:59 03:59 11:59 Intake Total 480 500 900 Output Total 200 250 Balance 280 250 900 Weight 80.104 kg Intake: IV 500 500 Sodium Chloride 0.9% 500 ml @ 500 500 100 mls/hr IV .Q5H [facility] Rx#: [id number] Oral 480 400 Output: Urine Catheter Amount 250 Void Amount 200 Other: Meal Lunch Percent of Meal Consumed 25% Feeding Ability Assist with Tray Set Up Urine Appearance Clear Clear Uretheral ([place]) Clear Urine Color Yellow Yellow Uretheral ([place]y) Yellow Urine Odor Normal OBJ DATA Labs 10/05/22 05:47 10/05/22 05:47 Labs: Abnormal Lab Results 10/05/22 10/05/22 10/05/22 05:47 05:47 02:31 WBC 26.8 H MCHC 30.4 L RDW 18.3 H Immature Gran % (Auto) Neut % (Auto) Lymph % (Auto) 50.9 H Lymph # (Auto) 13.65 H [place] # (Auto) 0.94 H Immature Gran # 0.13 H Absolute Neutrophils 12.04 H Anion Gap 6.0 L Creatinine Glucose 135 H Calcium 8.0 L AST 73 H Alkaline Phosphatase 244 H Albumin 2.6 L Globulin 3.9 H Albumin/Globulin Ratio 0.7 L Urine Protein 30 A Urine RBC 18 H Hyaline Casts 13 H Urine Mucus Mod A 10/04/22 10/04/22 10:29 09:15 WBC 20.5 H MCHC RDW 18.3 H Immature Gran % (Auto) 0.8 H Neut % (Auto) 37.9 L Lymph % (Auto) 53.1 H Lymph # (Auto) 10.90 H [place] # (Auto) 1.54 H Immature Gran # 0.17 H Absolute Neutrophils Anion Gap Creatinine 1.2 H Glucose 109 H Calcium 8.5 L AST Alkaline Phosphatase 156 H Albumin 3.0 L Globulin 3.9 H Albumin/Globulin Ratio 0.8 L Urine Protein Urine RBC Hyaline Casts Urine Mucus Meds: Medications Acetaminophen (Acetaminophen 325 Mg Tablet) 650 mg PO Q6HP PRN; Protocol PRN Reason: Per Pain Protocol/Fever > 101 Hydrocodone Bitart/Acetaminophen (Hydrocodone/Apap 5/325mg Tablet) 0 tab PO Q4HP PRN; Protocol PRN Reason: Per Pain Protocol Last Admin: 10/07/22 09:45 Dose: 1 tab Albuterol/Ipratropium (Ipratropium/Albuterol 3 Ml Ampul.Neb) 3 ml NEB Q4HRT PRN PRN Reason: Wheezing Amlodipine Besylate (Amlodipine 5 Mg Tablet) 2.5 mg PO DAILY [facility] Last Admin: 10/07/22 08:38 Dose: 2.5 mg Atorvastatin Calcium (Atorvastatin 40 Mg Tablet) 40 mg PO QPM [facility] Last Admin: 10/06/22 20:15 Dose: 40 mg Bisacodyl (Bisacodyl 10 Mg Supp.Rect) 10 mg LA Q2-3DAYS PRN PRN Reason: Constipation Diphenhydramine HCl (Diphenhydramine 25 Mg Capsule) 25 mg PO HSP PRN PRN Reason: Insomnia Docusate Sodium (Docusate Sodium 100 Mg Capsule) 100 mg PO BID [facility] Last Admin: 10/07/22 08:37 Dose: 100 mg Donepezil HCl (Donepezil 10 Mg Tablet) 5 mg PO HS [facility] Last Admin: 10/06/22 20:14 Dose: 5 mg Enoxaparin Sodium (Enoxaparin 40 Mg/0.4 Ml Syringe) 40 mg SQ DAILY [facility] Last Admin: 10/07/22 09:00 Dose: 40 mg Fluoxetine HCl (Fluoxetine Hcl 20 Mg Capsule) 20 mg PO DAILY [facility] Last Admin: 10/07/22 08:39 Dose: 20 mg Sodium Chloride (Sodium Chloride 0.9%) 500 mls @ 100 mls/hr IV .Q5H [facility] Last Admin: 10/07/22 05:06 Dose: 100 mls/hr Latanoprost (Latanoprost Ophth Drops 2.5ml Bottle) 1 gtt [facility] Last Admin: 10/06/22 20:16 Dose: Not Given Levothyroxine Sodium ([facility]othyroxine Sodium 112 Mcg Tablet) [facility] Admin: 10/07/22 07:11 Dose: 112 mcg Levothyroxine Sodium (Levothyroxine 25 Mcg Tablet) 25 mcg PO QAMAC [facility] Last Admin: 10/07/22 07:11 Dose: 25 mcg Magnesium Hydroxide (Magnesium Hydroxide 30 Ml Oral.Susp) 30 ml PO BIDP PRN PRN Reason: Constipation Melatonin (Melatonin 3 Mg Tablet) 3 mg PO QPM@1900 [facility] Last Admin: 10/06/22 20:15 Dose: 3 mg Memantine (Memantine 10 Mg Tablet) 10 mg PO BID [facility] Last Admin: 10/07/22 08:49 Dose: 10 mg Naproxen (Naproxen 250 Mg Tablet) 500 mg PO Q12HP PRN; Protocol PRN Reason: pain Nystatin (Nystatin Powder Bottle 15gm) 1 dose TOPICAL BID [facility] Last Admin: 10/06/22 20:16 Dose: 1 dose Ondansetron HCl (Ondansetron 4 Mg Odt Tablet) 4 mg SL Q6HP PRN PRN Reason: Nausea And Vomiting Oxycodone HCl (Oxycodone Ir 5 Mg Tablet) 5 mg PO Q4HP PRN; Protocol PRN Reason: Per Pain Protocol Last Admin: 10/05/22 08:09 Dose: 5 mg Polyethylene Glycol (Polyethylene Glycol 3350 17 Gm Packet) 17 gm PO DAILYP PRN PRN Reason: Constipation Quetiapine Fumarate (Quetiapine 25 Mg Tablet) 25 mg PO [facility] Last Admin: 10/06/22 20:15 Dose: 25 mg Senna (Sennosides 1 Tablet) 2 tab PO [facility] Last Admin: 10/06/22 20:14 Dose: 2 tab Sodium Biphosphate/Sodium Phosphate (Fleets Adult Enema) 1 dose LA Q3-4DAYS PRN PRN Reason: Constipation Throat Lozenges (Benzocaine/Menthol 1 Lozenge) 1 lozenge PO PRN PRN PRN Reason: Sore Throat Trazodone HCl (Trazodone Hcl 50 Mg Tablet) 25 mg PO HSP PRN PRN Reason: Insomnia A/P Narrative A/P Narrative: Assessment and Plans: *Right Hip Fx: s/p ORIF Dr. Francois (10/04) -Tylenol, Naproxen, Oxycodone, Morphine -Physical therapy evaluation and treatment, Occupational Therapy evaluation and treatment *History of Alzheimer dementia: -Donepezil , Memantine -delirium precautions *Depression -Quetiapine *HTN/HLD: -Norvasc , -Lipitor *Hypothyroidism: -Continue thyroid replacement therapy *CLL: Leukocytosis chronic *prophylaxis: Lovenox CODE STATUS: DNR Time Spent With Patient Time: Total time spent is greater than 50% in coordination of care (as documented) at patient's floor/unit and/or counseling patient:
[2022-10-07] MEDS: NYSTATIN POWDER BOTTLE 15GM TOPICAL SCH ×2 (11:28→21:26)
[2022-10-07] MEDS: SENNOSIDES 1 TABLET PO SCH (21:20)
[2022-10-07] MEDS: ATORVASTATIN 40 MG TABLET PO SCH (21:20)
[2022-10-07] MEDS: DONEPEZIL 10 MG TABLET PO SCH (21:20)
[2022-10-07] MEDS: QUEtiapine 25 MG TABLET PO SCH (21:20)
[2022-10-07] MEDS: MELATONIN 3 MG TABLET PO SCH (21:24)
[2022-10-07] MEDS: LATANOPROST OPHTH DROPS 2.5ML BOTTLE OU SCH (21:25)
[2022-10-08] MEDS: LEVOTHYROXINE 25 MCG TABLET PO SCH (07:27)
[2022-10-08] MEDS: LEVOTHYROXINE SODIUM 112 MCG TABLET PO SCH (07:27)
[2022-10-08] MEDS: ENOXAPARIN 40 MG/0.4 ML SYRINGE SQ SCH (09:46)
[2022-10-08] MEDS: MEMANTINE 10 MG TABLET PO SCH (09:47)
[2022-10-08] MEDS: DOCUSATE SODIUM 100 MG CAPSULE PO SCH (09:47)
[2022-10-08] MEDS: FLUoxetine HCL 20 MG CAPSULE PO SCH (09:47)
[2022-10-08] MEDS: amLODIPine 5 MG TABLET PO SCH (09:47)
[2022-10-08] MEDS: NYSTATIN POWDER BOTTLE 15GM TOPICAL SCH (11:19)
== END 2022-10-08 11:45 | DRG 481 ==
LOC: ED 08:56 → SUR 14:45 → MEDSUR 17:29
PROVIDERS: ADMIT Internal Medicine; ATTEND Internal Medicine